=== PATIENT | female | born 1990 | race Two or more races ===

== ENCOUNTER 2023-07-31 11:15 | Outpatient (AMB) | payer OTHER, SELFPAY ==
--- NOTE | 2023-07-31 11:33 | HO.NEPHOV ---
Vital Signs 07/31/23 11:34 Height 4 ft 11 in Weight 150 lb 8 oz BMI 30.4 BP 140/110 H Blood Pressure Location Lt brachial Position Sitting Intake Visit Reasons: Lupus/ Confirmed Director Of Sports Performance Required: No Accompanied by: Self / Same As Patient Allergies shrimp Allergy (Intermediate, Verified 07/31/23 11:38) THROAT SWELLING HPI Comments Details: I had the privilege of seeing Kaylah in follow-up of her proteinuria, hypertension and history of lupus nephritis. 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 She had low chronicity index but high activity index. Ever since she had 1 more child. She has stopped taking Plaquenil, losartan as well as mycophenolate. She has history of noncompliance. She denies any active joint swelling, joint pains, new skin rashes, pedal edema, visual disturbances, chest pain, shortness of breath, blood clots or spontaneous abortions. She has no history of antiphospholipid antibody. She is denying taking excessive nonsteroidal anti-inflammatories. She wants to get back on her medication regimen. [facility] Medical History (Updated 07/31/23 @ 14:25 by John Garduno MD) Hypertension Proteinuria, unspecified SLE glomerulonephritis syndrome, WHO class II Surgical History (Updated 07/31/23 @ 11:41 by Sue Goncalves MA) H/O section Social History (Updated 07/31/23 @ 11:41 by Sue Goncalves MA) Alcohol intake: never Patient Tobacco Use Status: Never used Tobacco Physical Exam Vital Signs: Last Vital Signs BP 140/110 H 07/31/23 11:34 BMI result Body Mass Index 30.4 Const General: comfortable and no acute distress Orientation/consciousness: patient oriented x3 HEENT Head: Yes normocephalic Mouth: Normal oral and palatal mucosa present Eyes EOM: EOMs intact bilaterally Neck Neck: Yes supple Resp Auscultation: clear to auscultation bilaterally Cardio Jugular venous distension: no JVD Rate: regular rate GI Palpation (GI): Soft to palpation Auscultation: normal bowel sounds General: Yes no CVA tenderness Back/Spine/Pelvis Back: no CVA tenderness Skin General skin exam: no rashes or lesions noted Neuro General: patient oriented x3 and moves all extremities Extrem General: Yes no pedal edema Results Reviewed Nephrology Results: No Data to Display Assessment & Plan Assessment & Plan (1) SLE glomerulonephritis syndrome, WHO class II: Code(s): M32.14 - Glomerular disease in systemic lupus erythematosus Category: Medical (2) Proteinuria, unspecified: Code(s): R80.9 - Proteinuria, unspecified Category: Medical Qualifiers: Proteinuria type: other Qualified Code(s): R80.8 - Other proteinuria (3) Hypertension: Code(s): I10 - Essential (primary) hypertension Category: Medical Qualifiers: Hypertension type: secondary to other renal disorders Qualified Code(s): I15.1 - Hypertension secondary to other renal disorders Plan Marc had been noncompliant with her management of lupus nephritis. She had started and stopped immunosuppressions multiple times. She has history of receiving intravenous Cytoxan as well as pulse methylprednisone along with oral steroids. I ordered blood work for today. I restarted her on losartan 50 mg daily. I reinforced the fact that she needs to be compliant with medications. Her need for immunosuppression and other medications will be based on evolving data from the lab work done today. Answered all her questions. Follow-up appointment given. She will be seen in the office in a month time. Orders: Orders Complement C4 Today I10 - Essential (primary) hypertension, M32.14 - Glomerular disease in systemic lupus erythematosus, R80.9 - Proteinuria, unspecified Anti DNA DS Antibody Today I10 - Essential (primary) hypertension, M32.14 - Glomerular disease in systemic lupus erythematosus, R80.9 - Proteinuria, unspecified Blood Urea Nitrogen Today I10 - Essential (primary) hypertension, M32.14 - Glomerular disease in systemic lupus erythematosus, R80.9 - Proteinuria, unspecified Electrolytes Today I10 - Essential (primary) hypertension, M32.14 - Glomerular disease in systemic lupus erythematosus, R80.9 - Proteinuria, unspecified UA and rflx microscopic Today I10 - Essential (primary) hypertension, M32.14 - Glomerular disease in systemic lupus erythematosus, R80.9 - Proteinuria, unspecified Protein Creatinine Ratio, Ur Today I10 - Essential (primary) hypertension, M32.14 - Glomerular disease in systemic lupus erythematosus, R80.9 - Proteinuria, unspecified Complement C3 Today I10 - Essential (primary) hypertension, M32.14 - Glomerular disease in systemic lupus erythematosus, R80.9 - Proteinuria, unspecified Creatinine Today I10 - Essential (primary) hypertension, M32.14 - Glomerular disease in systemic lupus erythematosus, R80.9 - Proteinuria, unspecified Complete Blood Count Auto Diff Today I10 - Essential (primary) hypertension, M32.14 - Glomerular disease in systemic lupus erythematosus, R80.9 - Proteinuria, unspecified Medications: New losartan 50 mg PO DAILY 30 tabs 4RF
[2023-07-31 11:34] VITALS: BP 140/110; BMI 30.4
== END 2023-07-31 12:02 | disposition home or self-care (01) ==
PROVIDERS: Visit Provider Internal Medicine Nephrology
DX: M32.14 Glomerular disease in systemic lupus erythematosus (principal); R80.8 Other proteinuria; I15.1 Hypertension secondary to other renal disorders; Z91.128 Patient's intentional underdosing of medication regimen for other reason
CPT/HCPCS: 99214

== ENCOUNTER 2023-07-31 13:50 | Outpatient (REF) | payer OTHER, SELFPAY ==
[2023-07-31 17:19] LABS: MANUAL DIFF FLAG NO
[2023-07-31 17:20] LABS: Appearance Urine Turbid; Color Urine Yellow; Glucose Urine UA Negative (Negative); Leukocyte Esterase Urine Small (1+) (Negative); Nitrite Urine Positive (Negative); PH 5.5 (5.0-9.0); Specific Gravity - Urine >= 1.030 (1.005-1.025); UMIC TRIGGER UA YES; Urine Blood Small (1+) (Negative); Urine Ketones Negative (Negative); Urine Protein >=1000 (4+) mg/dL (Neg-Trace)
[2023-07-31 17:32] LABS: Anion Gap 10 (12-20); Blood Urea Nitrogen 11 mg/dL (9-16); Carbon Dioxide 25 mmol/L (22-29); Chloride 109 mmol/L (96-108); Estimated Glomerular Filt Rate > 60; Potassium 3.5 mmol/L (3.3-5.1); Sodium 140 mmol/L (135-145)
[2023-07-31 17:34] LABS: Basophils Absolute Auto 0.1 X10*3/uL (0.0-0.2); Basophils Percent Auto 0.6 % (0-2); Eosinophils Absolute Auto 0.2 X10*3/uL (0.0-0.4); Eosinophils Percent Auto 2.8 % (0-4); Hematocrit 39.3 % (37.0-47.0); Hemoglobin 12.6 g/dl (12.0-16.0); Imm Gran Abs Auto 0.18 X10*3/uL (0.00-0.03); Imm Gran Pct Auto 2.3 % (0.0-0.4); Lymphocytes Absolute Auto 0.9 X10*3/uL (1.2-4.9); Lymphocytes Percent Auto 11.7 % (20-40); Mean Corpuscular HGB Conc 32.1 g/dl (31.0-35.0); Mean Corpuscular Hemoglobin 28.2 pg (27.0-33.0); Mean Corpuscular Volume 87.9 fL (80.0-98.0); Mean Platelet Volume 10.9 fL (9.4-12.3); Monocytes Absolute Auto 0.5 X10*3/uL (0.1-1.2); Monocytes Percent Auto 5.7 % (2-11); Neutrophils Absolute Auto 6.1 x10*3/uL (2.0-8.3); Neutrophils Percent Auto 76.9 % (45-73); Platelet Count 327 X10*3/uL (160-400); Red Blood Count 4.47 X10*6/uL (4.20-5.50); Red Cell Distribution Width 13.8 % (11.0-16.0)
[2023-07-31 17:35] LABS: Bacteria Urine 4+ (None Seen); Granular Casts Urine Present; RBC Urine 0-2 /HPF (0-2)
[2023-07-31 18:43] LABS: Creatinine Urine 180.81 mg/dL
[2023-07-31 19:05] LABS: Protein/Creatinine Ratio, Ur 1.91 (<0.2); Total Protein Urine Random 345 mg/dL (<12)
[2023-08-01 15:44] LABS: Complement C3 139 mg/dL (83-193)
[2023-08-01 20:28] LABS: Anti DNA DS Antibody 6 IU/mL
== END 2023-07-31 13:51 | disposition home or self-care (01) ==
LOC: HO.HKASLDS 13:50
PROVIDERS: Visit Provider Internal Medicine Nephrology
DX: M32.14 Glomerular disease in systemic lupus erythematosus (principal); R80.8 Other proteinuria; I15.1 Hypertension secondary to other renal disorders
CPT/HCPCS: 36415; 80051; 81001; 81003; 82565; 82570; 84156; 84520; 85025; 86160; 86225; 99212

== ENCOUNTER 2023-08-28 11:20 | Outpatient (AMB) | payer OTHER, SELFPAY ==
--- NOTE | 2023-08-28 11:30 | HO.NEPHOV ---
Vital Signs 08/28/23 11:35 Height 4 ft 11 in Weight 150 lb 8 oz BMI 30.4 BP 130/80 Blood Pressure Location Lt brachial Position Sitting Pulse 82 Pulse Source Pulse Oximeter Pulse Oximetry (%) 100 Oxygen Delivery Method Room Air Intake Visit Reasons: 1mon follow up/ Confirmed Sales Marketing Coordinator Required: No Accompanied by: Child Allergies shrimp Allergy (Intermediate, Verified 08/28/23 11:38) THROAT SWELLING HPI Comments Details: I had the privilege of seeing Kaylah in follow-up of her proteinuria, hypertension and history of lupus nephritis. 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 She had low chronicity index but high activity index. Ever since she had 1 more child. She has stopped taking Plaquenil, losartan as well as mycophenolate. She has history of noncompliance. She denies any active joint swelling, joint pains, new skin rashes, pedal edema, visual disturbances, chest pain, shortness of breath, blood clots or spontaneous abortions. She has no history of antiphospholipid antibody. She is denying taking excessive nonsteroidal anti-inflammatories. She is back on losartan since last visit. [facility] Medical History (Updated 07/31/23 @ 14:25 by John Garduno MD) Hypertension Proteinuria, unspecified SLE glomerulonephritis syndrome, WHO class II Surgical History (Updated 07/31/23 @ 11:41 by Sue Goncalves MA) H/O section Social History (Updated 07/31/23 @ 11:41 by Sue Goncalves MA) Alcohol intake: never Patient Tobacco Use Status: Never used Tobacco Physical Exam Const General: comfortable and no acute distress Orientation/consciousness: patient oriented x3 HEENT Head: Yes normocephalic Mouth: Normal oral and palatal mucosa present Eyes EOM: EOMs intact bilaterally Neck Neck: Yes supple Resp Auscultation: clear to auscultation bilaterally Cardio Jugular venous distension: no JVD Rate: regular rate GI Palpation (GI): Soft to palpation Auscultation: normal bowel sounds General: Yes no CVA tenderness Back/Spine/Pelvis Back: no CVA tenderness Skin General skin exam: no rashes or lesions noted Neuro General: patient oriented x3 and moves all extremities Extrem General: Yes no pedal edema Results Reviewed Nephrology Results: Hgb 12.6 g/dl (12.0-16.0) 07/31/23 WBC 8.0 X10*3/uL (4.8-10.8) 07/31/23 Plt Count 327 X10*3/uL (160-400) 07/31/23 Sodium 140 mmol/L (135-145) 07/31/23 Potassium 3.5 mmol/L (3.3-5.1) 07/31/23 Chloride 109 mmol/L (96-108) H 07/31/23 Carbon Dioxide 25 mmol/L (22-29) 07/31/23 BUN 11 mg/dL (9-16) 07/31/23 Creatinine 0.64 mg/dL (0.5-1.4) 07/31/23 Urine Protein >=1000 (4+) mg/dL (Neg-Trace) H 07/31/23 Urine Creatinine 180.81 mg/dL 07/31/23 Protein/Creatinin Ratio 1.91 (<0.2) H 07/31/23 Assessment & Plan Assessment & Plan (1) SLE glomerulonephritis syndrome, WHO class II: Code(s): M32.14 - Glomerular disease in systemic lupus erythematosus Category: Medical (2) Proteinuria, unspecified: Code(s): R80.9 - Proteinuria, unspecified Category: Medical Qualifiers: Proteinuria type: other Qualified Code(s): R80.8 - Other proteinuria (3) Hypertension: Code(s): I10 - Essential (primary) hypertension Category: Medical Qualifiers: Hypertension type: secondary to other renal disorders Qualified Code(s): I15.1 - Hypertension secondary to other renal disorders Ivelisse Annewalterezequiel had been noncompliant with her management of lupus nephritis. She had started and stopped immunosuppressions multiple times. She has history of receiving intravenous Cytoxan as well as pulse methylprednisone along with oral steroids. I increased her losartan to 50 mg twice daily. I reinforced the fact that she needs to be compliant with medications. Her need for immunosuppression and other medications will be based on evolving data from the lab work . She does not need cellcept now. Answered all her questions. Follow-up appointment given. Orders: Orders Blood Urea Nitrogen Today I15.1 - Hypertension secondary to other renal disorders, M32.14 - Glomerular disease in systemic lupus erythematosus, R80.8 - Other proteinuria Creatinine Today I15.1 - Hypertension secondary to other renal disorders, M32.14 - Glomerular disease in systemic lupus erythematosus, R80.8 - Other proteinuria Electrolytes Today I15.1 - Hypertension secondary to other renal disorders, M32.14 - Glomerular disease in systemic lupus erythematosus, R80.8 - Other proteinuria Protein Creatinine Ratio, Ur Today I15.1 - Hypertension secondary to other renal disorders, M32.14 - Glomerular disease in systemic lupus erythematosus, R80.8 - Other proteinuria Medications: Changed From losartan 50 mg PO DAILY 30 tabs 4RF To losartan 50 mg PO BID 30 days 60 tabs 4RF Coding Level of Care Code Est Pt Level 4 (81019) Diagnoses SLE glomerulonephritis syndrome, WHO class II M32.14 Other proteinuria R80.8 Proteinuria type: other Hypertension secondary to other renal disorders I15.1 Hypertension type: secondary to other renal disorders
[2023-08-28 11:35] VITALS: BP 130/80; PULSE 82; O2SAT 100; BMI 30.4
== END 2023-08-28 12:15 | disposition home or self-care (01) ==
PROVIDERS: Visit Provider Internal Medicine Nephrology
DX: M32.14 Glomerular disease in systemic lupus erythematosus (principal); R80.8 Other proteinuria; I15.1 Hypertension secondary to other renal disorders
CPT/HCPCS: 99214

== ENCOUNTER → 2023-08-28 11:20 | Outpatient (BNVA) | payer OTHER, SELFPAY | PROVIDERS: Visit Provider Internal Medicine Nephrology | DX: M32.14 Glomerular disease in systemic lupus erythematosus (principal); R80.8 Other proteinuria; I15.1 Hypertension secondary to other renal disorders | CPT/HCPCS: 99212 ==

== ENCOUNTER 2024-01-20 10:02 | Outpatient (AMB) | payer OTHER, SELFPAY ==
--- NOTE | 2024-01-20 10:04 | HO.NEPHOV ---
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 She had low chronicity index but high activity index. Ever since she had 1 more child. She has stopped taking Plaquenil, losartan as well as mycophenolate for a long period of time. She has history of noncompliance. She denies any active joint swelling, joint pains, new skin rashes, pedal edema, visual disturbances, chest pain, shortness of breath, blood clots or spontaneous abortions. She has no history of antiphospholipid antibody. She is denying taking excessive nonsteroidal anti-inflammatories. [facility] Medical History Hypertension Proteinuria, unspecified SLE glomerulonephritis syndrome, WHO class II Surgical History H/O section Social History Alcohol intake: never Patient Tobacco Use Status: Never used Tobacco Review of Systems Const All systems reviewed & are unremarkable except as noted in HPI and below Physical Exam Vital Signs: Last Vital Signs Pulse 92 01/20/24 10:16 BP 170/110 H 01/20/24 10:16 Pulse Ox 100 01/20/24 10:16 Oxygen Delivery Method Room Air 01/20/24 10:16 BMI result Body Mass Index 30.8 Const General: comfortable and no acute distress Orientation/consciousness: patient oriented x3 HEENT Head: Yes normocephalic Mouth: Normal oral and palatal mucosa present Eyes EOM: EOMs intact bilaterally Neck Neck: Yes supple Resp Auscultation: clear to auscultation bilaterally Cardio Jugular venous distension: no JVD Rate: regular rate GI Palpation (GI): Soft to palpation Auscultation: normal bowel sounds General: Yes no CVA tenderness Back/Spine/Pelvis Back: no CVA tenderness Skin General skin exam: no rashes or lesions noted Neuro General: patient oriented x3 and moves all extremities Extrem General: Yes no pedal edema Results Reviewed Nephrology Results: Hgb 12.6 g/dl (12.0-16.0) 07/31/23 WBC 8.0 X10*3/uL (4.8-10.8) 07/31/23 Plt Count 327 X10*3/uL (160-400) 07/31/23 Sodium 140 mmol/L (135-145) 07/31/23 Potassium 3.5 mmol/L (3.3-5.1) 07/31/23 Chloride 109 mmol/L (96-108) H 07/31/23 Carbon Dioxide 25 mmol/L (22-29) 07/31/23 BUN 11 mg/dL (9-16) 07/31/23 Creatinine 0.64 mg/dL (0.5-1.4) 07/31/23 Urine Protein >=1000 (4+) mg/dL (Neg-Trace) H 07/31/23 Urine Creatinine 180.81 mg/dL 07/31/23 Protein/Creatinin Ratio 1.91 (<0.2) H 07/31/23 Assessment & Plan Assessment & Plan (1) SLE glomerulonephritis syndrome, WHO class II: Code(s): M32.14 - Glomerular disease in systemic lupus erythematosus Category: Medical (2) Proteinuria, unspecified: Code(s): R80.9 - Proteinuria, unspecified Category: Medical Qualifiers: Proteinuria type: other Qualified Code(s): R80.8 - Other proteinuria (3) Hypertension: Code(s): I10 - Essential (primary) hypertension Category: Medical Qualifiers: Hypertension type: secondary to other renal disorders Qualified Code(s): I15.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 She had started and stopped immunosuppressions multiple times. She has history of receiving intravenous Cytoxan as well as pulse methylprednisone along with oral steroids. I started her back on losartan 50 mg twice daily. I reinforced the fact that she needs to be compliant with medications. Her need for immunosuppression and other medications will be based on evolving data from the lab work . She does not need cellcept now. Answered all her questions. Time spent 41 minutes for data retrieval, encounter and documentation. Lab ordered for today. Follow-up appointment given. Orders: Orders Complement C4 Today I15.1 - Hypertension secondary to other renal disorders, M32.14 - Glomerular disease in systemic lupus erythematosus, R80.8 - Other proteinuria UA and rflx microscopic Today I15.1 - Hypertension secondary to other renal disorders, M32.14 - Glomerular disease in systemic lupus erythematosus, R80.8 - Other proteinuria Protein Creatinine Ratio, Ur Today I15.1 - Hypertension secondary to other renal disorders, M32.14 - Glomerular disease in systemic lupus erythematosus, R80.8 - Other proteinuria Blood Urea Nitrogen Today I15.1 - Hypertension secondary to other renal disorders, M32.14 - Glomerular disease in systemic lupus erythematosus, R80.8 - Other proteinuria Complement C3 Today I15.1 - Hypertension secondary to other renal disorders, M32.14 - Glomerular disease in systemic lupus erythematosus, R80.8 - Other proteinuria Creatinine Today I15.1 - Hypertension secondary to other renal disorders, M32.14 - Glomerular disease in systemic lupus erythematosus, R80.8 - Other proteinuria Electrolytes Today I15.1 - Hypertension secondary to other renal disorders, M32.14 - Glomerular disease in systemic lupus erythematosus, R80.8 - Other proteinuria Coding Level of Care Code Est Pt Level 5 (18598) Diagnoses SLE glomerulonephritis syndrome, WHO class II M32.14 Other proteinuria R80.8 Proteinuria type: other Hypertension secondary to other renal disorders I15.1 Hypertension type: secondary to other renal disorders
[2024-01-20 10:16] VITALS: BP 170/110; PULSE 92; O2SAT 100; BMI 30.8
== END 2024-01-20 10:50 | disposition home or self-care (01) ==
PROVIDERS: Visit Provider Internal Medicine Nephrology
DX: M32.14 Glomerular disease in systemic lupus erythematosus (principal); R80.8 Other proteinuria; I15.1 Hypertension secondary to other renal disorders
CPT/HCPCS: 99215

== ENCOUNTER → 2024-01-20 10:02 | Outpatient (BNVA) | payer OTHER, SELFPAY | PROVIDERS: Visit Provider Internal Medicine Nephrology | DX: M32.14 Glomerular disease in systemic lupus erythematosus (principal); R80.8 Other proteinuria; I15.1 Hypertension secondary to other renal disorders | CPT/HCPCS: 99212 ==

== ENCOUNTER 2024-02-26 10:49 | Outpatient (AMB) | payer OTHER, SELFPAY ==
--- NOTE | 2024-02-26 10:54 | HO.NEPHOV_ITS ---
Vital Signs 02/26/24 10:55 Height 4 ft 11 in Weight 152 lb 8 oz BMI 30.8 BP 122/90 H Blood Pressure Location Lt brachial Position Sitting Intake Visit Reasons: Per MD Survey Workers Supervisor Required: No Accompanied by: Self / Same As Patient Allergies shrimp Allergy (Intermediate, Verified 02/26/24 10:55) THROAT SWELLING HPI Comments Details: Kaylah was seen in follow-up of her proteinuria, hypertension and history of lupus nephritis. 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 She had low chronicity index but high activity index. Ever since she had 1 more child. She has stopped taking Plaquenil, losartan as well as mycophenolate for a long period of time. She has history of noncompliance. She denies any active joint swelling, joint pains, new skin rashes, pedal edema, visual disturbances, chest pain, shortness of breath, blood clots or spontaneous abortions. She has no history of antiphospholipid antibody. She is denying taking excessive nonsteroidal anti-inflammatories.She recently had one episode of dizziness. [facility] Medical History Hypertension Proteinuria, unspecified SLE glomerulonephritis syndrome, WHO class II Surgical History H/O section Social History Alcohol intake: never Patient Tobacco Use Status: Never used Tobacco Review of Systems Const All systems reviewed & are unremarkable except as noted in HPI and below Physical Exam Vital Signs: Last Vital Signs BP 122/90 H 02/26/24 10:55 BMI result Body Mass Index 30.8 Const General: comfortable and no acute distress Orientation/consciousness: patient oriented x3 HEENT Head: Yes normocephalic Mouth: Normal oral and palatal mucosa present Eyes EOM: EOMs intact bilaterally Neck Neck: Yes supple Resp Auscultation: clear to auscultation bilaterally Cardio Jugular venous distension: no JVD Rate: regular rate GI Palpation (GI): Soft to palpation Auscultation: normal bowel sounds General: Yes no CVA tenderness Back/Spine/Pelvis Back: no CVA tenderness Skin General skin exam: no rashes or lesions noted Neuro General: patient oriented x3 and moves all extremities Extrem General: Yes no pedal edema Results Reviewed Nephrology Results: Hgb 12.6 g/dl (12.0-16.0) 07/31/23 WBC 8.0 X10*3/uL (4.8-10.8) 07/31/23 Plt Count 327 X10*3/uL (160-400) 07/31/23 Sodium 140 mmol/L (135-145) 07/31/23 Potassium 3.5 mmol/L (3.3-5.1) 07/31/23 Chloride 109 mmol/L (96-108) H 07/31/23 Carbon Dioxide 25 mmol/L (22-29) 07/31/23 BUN 11 mg/dL (9-16) 07/31/23 Creatinine 0.64 mg/dL (0.5-1.4) 07/31/23 Urine Protein >=1000 (4+) mg/dL (Neg-Trace) H 4 Urine Creatinine 180.81 mg/dL 07/31/23 Protein/Creatinin Ratio 1.91 (<0.2) H 07/31/23 Assessment & Plan Assessment & Plan (1) SLE glomerulonephritis syndrome, WHO class II: Code(s): M32.14 - Glomerular disease in systemic lupus erythematosus Category: Medical (2) Hypertension: Code(s): I10 - Essential (primary) hypertension Category: Medical Qualifiers: Hypertension type: secondary to other renal disorders Qualified Code(s): I15.1 - Hypertension secondary to other renal disorders (3) Proteinuria, unspecified: Code(s): R80.9 - Proteinuria, unspecified Category: Medical Qualifiers: Proteinuria type: other Qualified Code(s): R80.8 - Other proteinuria Plan Dianchesca had been noncompliant with her management of lupus nephritis. She had started and stopped immunosuppressions multiple times. She has history of receiving intravenous Cytoxan as well as pulse methylprednisone along with oral steroids. She is on losartan 25 mg daily. I reinforced the fact that she needs to be compliant with medications. Her need for immunosuppression and other medications will be based on evolving data from the lab work . She does not need cellcept now. Answered all her questions. Lab ordered . Follow-up appointment given. Orders: Orders Creatinine 2 Months I15.1 - Hypertension secondary to other renal disorders, M32.14 - Glomerular disease in systemic lupus erythematosus, R80.8 - Other proteinuria UA and rflx microscopic 2 Months I15.1 - Hypertension secondary to other renal disorders, M32.14 - Glomerular disease in systemic lupus erythematosus, R80.8 - Other proteinuria Complement C3 2 Months I15.1 - Hypertension secondary to other renal disorders, M32.14 - Glomerular disease in systemic lupus erythematosus, R80.8 - Other proteinuria Protein Creatinine Ratio, Ur 2 Months I15.1 - Hypertension secondary to other renal disorders, M32.14 - Glomerular disease in systemic lupus erythematosus, R80.8 - Other proteinuria Blood Urea Nitrogen 2 Months I15.1 - Hypertension secondary to other renal disorders, M32.14 - Glomerular disease in systemic lupus erythematosus, R80.8 - Other proteinuria Electrolytes 2 Months I15.1 - Hypertension secondary to other renal disorders, M32.14 - Glomerular disease in systemic lupus erythematosus, R80.8 - Other proteinuria Complement C4 2 Months I15.1 - Hypertension secondary to other renal disorders, M32.14 - Glomerular disease in systemic lupus erythematosus, R80.8 - Other proteinuria Coding Level of Care Code Est Pt Level 4 (07396) Diagnoses SLE glomerulonephritis syndrome, WHO class II M32.14 Hypertension secondary to other renal disorders I15.1 Hypertension type: secondary to other renal disorders Other proteinuria R80.8 Proteinuria type: other
[2024-02-26 10:55] VITALS: BP 122/90; BMI 30.8
== END 2024-02-26 11:21 | disposition home or self-care (01) ==
PROVIDERS: Visit Provider Internal Medicine Nephrology
DX: M32.14 Glomerular disease in systemic lupus erythematosus (principal); I15.1 Hypertension secondary to other renal disorders; R80.8 Other proteinuria
CPT/HCPCS: 99214

== ENCOUNTER → 2024-02-26 10:49 | Outpatient (BNVA) | payer OTHER, SELFPAY | PROVIDERS: Visit Provider Internal Medicine Nephrology | DX: M32.14 Glomerular disease in systemic lupus erythematosus (principal); I15.0 Renovascular hypertension; R80.8 Other proteinuria; Z91.148 Patient's other noncompliance with medication regimen for other reason | CPT/HCPCS: 99212 ==

== ENCOUNTER 2024-04-20 10:04 | Outpatient (AMB) | payer OTHER, SELFPAY ==
--- NOTE | 2024-04-20 10:24 | HO.NEPHOV ---
Vital Signs 04/20/24 10:25 Height 4 ft 11 in Weight 151 lb 2 oz BMI 30.5 BP 122/80 Blood Pressure Location Lt brachial Position Sitting Intake Visit Reasons: 3mo -Follow up/ LVM Biological Sciences Professor Required: No Accompanied by: Self / Same As Patient Allergies shrimp Allergy (Intermediate, Verified 04/20/24 10:25) THROAT SWELLING HPI Comments Details: Kaylah was seen in follow-up of her proteinuria, hypertension and history of lupus nephritis. 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 She had low chronicity index but high activity index. Ever since she had 1 more child. She has stopped taking Plaquenil, losartan as well as mycophenolate for a long period of time. She has history of noncompliance. She denies any active joint swelling, joint pains, new skin rashes, pedal edema, visual disturbances, chest pain, shortness of breath, blood clots or spontaneous abortions. She has no history of antiphospholipid antibody. She is denying taking excessive nonsteroidal anti-inflammatories. [facility] Medical History Hypertension Proteinuria, unspecified SLE glomerulonephritis syndrome, WHO class II Surgical History H/O section Social History Alcohol intake: never Patient Tobacco Use Status: Never used Tobacco Review of Systems Const All systems reviewed & are unremarkable except as noted in HPI and below Physical Exam Const General: comfortable and no acute distress Orientation/consciousness: patient oriented x3 HEENT Head: Yes normocephalic Mouth: Normal oral and palatal mucosa present Eyes EOM: EOMs intact bilaterally Neck Neck: Yes supple Resp Auscultation: clear to auscultation bilaterally Cardio Jugular venous distension: no JVD Rate: regular rate GI Palpation (GI): Soft to palpation Auscultation: normal bowel sounds General: Yes no CVA tenderness Back/Spine/Pelvis Back: no CVA tenderness Skin General skin exam: no rashes or lesions noted Neuro General: patient oriented x3 and moves all extremities Extrem General: Yes no pedal edema Assessment & Plan Assessment & Plan (1) Proteinuria, unspecified: Code(s): R80.9 - Proteinuria, unspecified Category: Medical Qualifiers: Proteinuria type: other Qualified Code(s): R80.8 - Other proteinuria (2) Hypertension: Code(s): I10 - Essential (primary) hypertension Category: Medical Qualifiers: Hypertension type: secondary to other renal disorders Qualified Code(s): I15.1 - Hypertension secondary to other renal disorders (3) SLE glomerulonephritis syndrome, WHO class II: Code(s): M32.14 - Glomerular disease in systemic lupus erythematosus Category: Medical Plan Marc had been noncompliant with her management of lupus nephritis. She had started and stopped immunosuppressions multiple times. She has history of receiving intravenous Cytoxan as well as pulse methylprednisone along with oral steroids. She is on losartan 25 mg daily. I reinforced the fact that she needs to be compliant with medications. Her need for immunosuppression and other medications will be based on evolving data from the lab work . She does not need cellcept now. Answered all her questions. Lab ordered . Follow-up appointment given. Orders: Orders Creatinine Today I15.1 - Hypertension secondary to other renal disorders, M32.14 - Glomerular disease in systemic lupus erythematosus, R80.8 - Other proteinuria Blood Urea Nitrogen Today I15.1 - Hypertension secondary to other renal disorders, M32.14 - Glomerular disease in systemic lupus erythematosus, R80.8 - Other proteinuria Electrolytes Today I15.1 - Hypertension secondary to other renal disorders, M32.14 - Glomerular disease in systemic lupus erythematosus, R80.8 - Other proteinuria Protein Creatinine Ratio, Ur 3 Months I15.1 - Hypertension secondary to other renal disorders, M32.14 - Glomerular disease in systemic lupus erythematosus, R80.8 - Other proteinuria Blood Urea Nitrogen 3 Months I15.1 - Hypertension secondary to other renal disorders, M32.14 - Glomerular disease in systemic lupus erythematosus, R80.8 - Other proteinuria Protein Creatinine Ratio, Ur Today I15.1 - Hypertension secondary to other renal disorders, M32.14 - Glomerular disease in systemic lupus erythematosus, R80.8 - Other proteinuria Electrolytes 3 Months I15.1 - Hypertension secondary to other renal disorders, M32.14 - Glomerular disease in systemic lupus erythematosus, R80.8 - Other proteinuria Creatinine 3 Months I15.1 - Hypertension secondary to other renal disorders, M32.14 - Glomerular disease in systemic lupus erythematosus, R80.8 - Other proteinuria Coding Level of Care Code Est Pt Level 4 (55611) Diagnoses Other proteinuria R80.8 Proteinuria type: other Hypertension secondary to other renal disorders I15.1 Hypertension type: secondary to other renal disorders SLE glomerulonephritis syndrome, WHO class II M32.14
[2024-04-20 10:25] VITALS: BP 122/80; BMI 30.5
== END 2024-04-20 10:43 | disposition home or self-care (01) ==
PROVIDERS: Visit Provider Internal Medicine Nephrology
DX: R80.8 Other proteinuria (principal); I15.1 Hypertension secondary to other renal disorders; M32.14 Glomerular disease in systemic lupus erythematosus
CPT/HCPCS: 99214

== ENCOUNTER 2024-04-20 10:04 | Outpatient (REF) | payer OTHER, SELFPAY ==
[2024-04-20 18:24] LABS: Anion Gap 11 (12-20); Blood Urea Nitrogen 11 mg/dL (9-16); Carbon Dioxide 26 mmol/L (22-29); Chloride 107 mmol/L (96-108); Estimated Glomerular Filt Rate > 60; Potassium 3.8 mmol/L (3.3-5.1); Sodium 140 mmol/L (135-145)
[2024-04-20 18:42] LABS: Creatinine Urine 121.83 mg/dL; Protein/Creatinine Ratio, Ur 1.16 (<0.2); Total Protein Urine Random 141 mg/dL (<12)
== END 2024-04-20 10:05 | disposition home or self-care (01) ==
LOC: HO.HKASLDS 10:04
PROVIDERS: Visit Provider Internal Medicine Nephrology
DX: M32.14 Glomerular disease in systemic lupus erythematosus (principal); R80.8 Other proteinuria; I15.1 Hypertension secondary to other renal disorders
CPT/HCPCS: 36415; 80051; 82565; 82570; 84156; 84520; 99212

== ENCOUNTER 2024-07-20 09:41 | Outpatient (REF) | payer OTHER, SELFPAY ==
--- OUTSIDE RECORDS SUMMARY | 2024-07-20 11:06 | XMS_ITS | Encounter Summary ---
Author Organization [facility] Address [address] [place] [address] Care Team Providers Care Collar Cutter Name Role Phone Marisol Gilman MD Primary Care Provider [phone] Marisol Gilman MD Unavailable [phone] Encounter Details Date Type Department Care Team Description 03/03/2019 Industrial Designer Report Medical Records [address] [place] [address] Oli Funk Social History Tobacco Use Types Packs/Day Years Used Date Smoking Tobacco: Never Smokeless Tobacco: Never Sex Assigned at Date Recorded Not on file documented as of this encounter Plan of Treatment Not on file documented as of this encounter Visit Diagnoses Not on filedocumented in this encounter Care Teams Collar Cutter Relationship Specialty Start Date End Date Marisol Gilman MD PCP - General Internal Medicine 02/23/18 Marisol Gilman MD Internal Medicine 02/23/18 documented as of this encounter
--- OUTSIDE RECORDS SUMMARY | 2024-07-20 11:06 | XMS_ITS | Encounter Summary ---
Author Organization [email or web address] Address [address] [place] [address] Care Team Providers Care Coal Conveyor Operator Name Role Phone Marisol Gilman MD Primary Care Provider [phone] Marisol Gilman MD Unavailable [phone] Encounter Details Date Type Department Care Team Description 03/22/2019 Old Medical Records Medical Records [address] [place] [id number] Abstract, Provider Social History Tobacco Use Types Packs/Day Years Used Date Smoking Tobacco: Never Smokeless Tobacco: Never Sex Assigned at Date Recorded Not on file documented as of this encounter Plan of Treatment Not on file documented as of this encounter Visit Diagnoses Not on filedocumented in this encounter Care Teams Coal Conveyor Operator Relationship Specialty Start Date End Date Marisol Gilman MD PCP - General Internal Medicine 02/23/18 Marisol Gilman MD Internal Medicine 02/23/18 documented as of this encounter
--- OUTSIDE RECORDS SUMMARY | 2024-07-20 11:06 | XMS_ITS | Encounter Summary ---
Author Organization [facility] Address [address] [place] [address] Care Team Providers Care Shingle Cutter Name Role Phone Marisol Gilman MD Primary Care Provider [phone] Marisol Gilman MD Unavailable [phone] Encounter Details Date Type Department Care Team Description 12/23/2022 Telephone Gastroenterology - [address] [place] [phone] Mignon Klein, Shawn Social History Tobacco Use Types Packs/Day Years Used Date Smoking Tobacco: Former Smokeless Tobacco: Never Comments:on and off for a fe w years Alcohol Use Standard Drinks/Week Comments No 0 (1 standard drink = 0.6 oz pur e alcohol) Sex Assigned at Date Recorded Not on file COVID-19 Exposure Response Date Recorded In the last 10 days, have yo u been in contact with someone who was confirmed or suspected to have Coronavirus/COVID-19? Unable to assess 12/23/2022 8:05 AM EDT documented as of this encounter Plan of Treatment Not on file documented as of this encounter Visit Diagnoses Not on filedocumented in this encounter Care Teams Shingle Cutter Relationship Specialty Start Date End Date Marisol Gilman MD PCP - General Internal Medicine 02/23/18 Marisol Gilman MD Internal Medicine 02/23/18 documented as of this encounter
--- OUTSIDE RECORDS SUMMARY | 2024-07-20 11:06 | XMS_ITS | Encounter Summary ---
Author Organization [facility] Address [address] [place] [address] Care Team Providers Care Material Manager Name Role Phone Marisol Gilman MD Primary Care Provider [phone] Marisol Gilman MD Unavailable [phone] Encounter Details Date Type Department Care Team Description 12/25/2018 Physical Sciences Professor Report Medical Records [address] [place] [address] Oli Funk Social History Tobacco Use Types Packs/Day Years Used Date Smoking Tobacco: Never Smokeless Tobacco: Never Sex Assigned at Date Recorded Not on file documented as of this encounter Plan of Treatment Not on file documented as of this encounter Visit Diagnoses Not on filedocumented in this encounter Care Teams Material Manager Relationship Specialty Start Date End Date Marisol Gilman MD PCP - General Internal Medicine 02/23/18 Marisol Gilman MD Internal Medicine 02/23/18 documented as of this encounter
--- OUTSIDE RECORDS SUMMARY | 2024-07-20 11:06 | XMS_ITS | Encounter Summary ---
Author Organization [facility] Address [address] [place] [address] Care Team Providers Care Malted Milk Mixer Name Role Phone Marisol Gilman MD Primary Care Provider [phone] Marisol Gilman MD Unavailable [phone] Encounter Details Date Type Department Care Team Description 07/07/2018 Stereo Plotter Operator Report Medical Records [address] [place] [id number] John Garduno MD Social History Tobacco Use Types Packs/Day Years Used Date Smoking Tobacco: Never Smokeless Tobacco: Never Sex Assigned at Date Recorded Not on file documented as of this encounter Plan of Treatment Not on file documented as of this encounter Visit Diagnoses Not on filedocumented in this encounter Care Teams Malted Milk Mixer Relationship Specialty Start Date End Date Marisol Gilman MD PCP - General Internal Medicine 02/23/18 Marisol Gilman MD Internal Medicine 02/23/18 documented as of this encounter
--- OUTSIDE RECORDS SUMMARY | 2024-07-20 11:06 | XMS_ITS | Encounter Summary ---
Author Organization [facility] Address [address] [place] [address] Care Team Providers Care Fruit And Vegetable Parer Name Role Phone Marisol Gilman MD Primary Care Provider [phone] Marisol Gilman MD Unavailable [phone] Reason for Visit * Reason Onset Date Comments APPOINTMENT 01/06/2024 Encounter Details Date Type Department Care Team Description 01/06/2024 Telephone Internal Medicine - [address], [address] [place] [address] Marisol Gilman MD [address] [place] [phone] APPOINTMENT Social History Tobacco Use Types Packs/Day Years Used Date Smoking Tobacco: Former Smokeless Tobacco: Never Comments:on and off for a fe w years Alcohol Use Standard Drinks/Week Comments No 0 (1 standard drink = 0.6 oz pur e alcohol) Sex Assigned at Date Recorded Not on file documented as of this encounter Miscellaneous Notes * Telephone Encounter - Kimi Rios - 01/06/2024 12:23 PM EDT Patient called AFTER Twelve noon Requesting to be seen today Cold and ear ache since this am - did not phone earlier in am Informed her NA appt this afternoon or tomorrow I then transferred the call to our urgent care fyi documented in this encounter Plan of Treatment Not on file documented as of this encounter Visit Diagnoses Not on filedocumented in this encounter Care Teams Fruit And Vegetable Parer Relationship Specialty Start Date End Date Marisol Gilman MD PCP - General Internal Medicine 02/23/18 Marisol Gilman MD Internal Medicine 02/23/18 documented as of this encounter
--- OUTSIDE RECORDS SUMMARY | 2024-07-20 11:06 | XMS_ITS | Encounter Summary ---
Author Organization [facility] Address [address] [place] [address] Care Team Providers Care Certified Anesthesiologist Assistant Name Role Phone Marisol Gilman MD Primary Care Provider [phone] Marisol Gilman MD Unavailable [phone] Encounter Details Date Type Department Care Team Description 12/22/2018 Nnps Report Medical Records [address] [place] [id number] [place] [address], [facility] Tobacco Use Types Packs/Day Years Used Date Smoking Tobacco: Never Smokeless Tobacco: Never Sex Assigned at Date Recorded Not on file documented as of this encounter Plan of Treatment Not on file documented as of this encounter Visit Diagnoses Not on filedocumented in this encounter Care Teams Certified Anesthesiologist Assistant Relationship Specialty Start Date End Date Marisol Gilman MD PCP - General Internal Medicine 02/23/18 Marisol Gilman MD Internal Medicine 02/23/18 documented as of this encounter
--- OUTSIDE RECORDS SUMMARY | 2024-07-20 11:06 | XMS_ITS | Clinical Summary ---
Author Organization [facility] Address [address] [facility] [address] [place] [address] Phone Care Team Providers Care Fishing Lure Assembler Name Role Phone Marisol Gilman MD Primary Care Provider [phone] Allergies Active Allergy Reactions Criticality Noted Date Comments Shrimp Flavor Agent (Non-Screening) 10/11/2020 Medications hydroxychloroqu ine (PLAQUENIL) 200 MG tablet Take 200 mg by mouth in the morning and 200 mg in the evening. Active amitriptyline (ELAVIL) 10 MG tablet 12/23/2022 Active dicyclomine (BENTYL) 10 MG capsule 12/23/2022 Active fluconazole (DIFLUCAN) 150 MG tablet TAKE 1 TABLET BY MOUTH 1 TIME 12/18/2022 Active hydrOXYzine (ATARAX) 10 MG tablet TAKE 1 TABLET BY MOUTH DAILY NEEDED FOR ITCHING 12/05/2022 Active DULCOLAX 5 MG EC tablet TAKE 2 TABLETS BY MOUTH AT 6PM 11/21/2022 Active loratadine (CLARITIN) 10 MG tablet Take 10 mg by mouth 1 (one) time each day 12/02/2022 Active losartan (COZAAR) 25 MG tablet Take 1 tablet (25 mg total) by mouth in the morning and 1 tablet (25 mg total) in the evening. 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 Dyspareunia 05/22/2021 05/22/2021 Past history of section 05/22/2021 05/22/2021 High antibody titer 05/22/2021 05/22/19 Past history of pre-eclampsia 05/22/2021 05/22/2021 Obese class I 05/22/2021 05/22/2021 Raynaud's disease 05/22/2021 05/22/2021 Serology detected 05/22/2021 05/22/2021 Overview (05/22/2021): AND anti-Fya antibody positive Edema 10/11/2020 10/11/2020 Constipation 03/17/2017 10/11/2020 Anxiety 03/06/2016 10/11/2020 Vitamin D deficiency 06/16/2014 021 Carpal tunnel syndrome 11/26/201210/11 Immunizations Name Administration Dates Next Due Pneumococcal Polysaccharide 02/23/2017 Tdap 05/15/2021,11/09/2018 Family History Relation Status Comments Father Alive Mother Alive Social History Tobacco Use Types Packs/Day Years Used Date Smoking Tobacco: Former Smokeless Tobacco: Never Tobacco Cessation:Counseling Given: Not Answered Comments Unknown Sex and Gender Information Value Date Recorded Sex Assigned at Not on file Legal Sex Female 5:03 PM EST Gender Identity Not on file Sexual Orientation Not on file Last Filed Vital Signs Vital Sign Reading Time Taken Comments Blood Pressure 124/78 01/02/2023 4:21 PM EDT Pulse 73 01/02/2023 4:21 PM EDT Temperature - - Respiratory Rate - - Oxygen Saturation 96% 01/02/2023 4:21 PM EDT Inhaled Oxygen Concentration - - Weight 68.9 kg (151 lb 12.8 oz) 01/02/2023 4:21 PM EDT Height 152.4 cm (5') 04/18/2020 12:00 PM EST Body Mass Index 29.65 04/18/2020 12:00 PM EST Plan of Treatment Health Maintenance Due Date Last Done Comments Hepatitis B Vaccine (1 of 3 - 19+ 3-dose series) 01/14 Pneumococcal Vaccine: Pediat rics (0 to 5 Years) and At-Risk Patients (6 to 64 Years) (2 of 2 - PCV) 02/23/2018 02/23/2017 Influenza Vaccine (Season Ended) 2024 Insurance (A2793) ([id number]) Care Teams Fishing Lure Assembler Relationship Specialty Start Date End Date Marisol Gilman MD [address] [place] [phone] PCP - General 04/24/20
--- OUTSIDE RECORDS SUMMARY | 2024-07-20 11:06 | XMS_ITS | Encounter Summary ---
Author Organization [facility] Address [address] [place] [address] Care Team Providers Care Frame Table Operator Helper Name Role Phone Marisol Gilman MD Primary Care Provider [phone] Marisol Gilman MD Unavailable [phone] Encounter Details Date Type Department Care Team Description 05/18/2019 Racing Car Driver Report Medical Records [address] [place] [id number] John Garduno MD Social History Tobacco Use Types Packs/Day Years Used Date Smoking Tobacco: Never Smokeless Tobacco: Never Sex Assigned at Date Recorded Not on file documented as of this encounter Plan of Treatment Not on file documented as of this encounter Visit Diagnoses Not on filedocumented in this encounter Care Teams Frame Table Operator Helper Relationship Specialty Start Date End Date Marisol Gilman MD PCP - General Internal Medicine 02/23/18 Marisol Gilman MD Internal Medicine 02/23/18 documented as of this encounter
--- OUTSIDE RECORDS SUMMARY | 2024-07-20 11:06 | XMS_ITS | Encounter Summary ---
Author Organization [facility] Address [address] [place] [address] Care Team Providers Care Utilization Management Manager Name Role Phone Marisol Gilman MD Primary Care Provider [phone] Marisol Gilman MD Unavailable [phone] Encounter Details Date Type Department Care Team Description 01/02/2023 Therapy Technician Report Medical Records [address] [place] [id number] John Garduno MD Social History Tobacco Use [...] on filedocumented in this encounter Care Teams Utilization Management Manager Relationship Specialty Start Date End Date Marisol Gilman MD PCP - General Internal Medicine 02/23/18 Marisol Gilman MD Internal Medicine 02/23/18 documented as of this encounter
--- OUTSIDE RECORDS SUMMARY | 2024-07-20 11:06 | XMS_ITS | Encounter Summary ---
Author Organization [facility] Address [address] [place] [address] Care Team Providers Care Marketing Lead Name Role Phone Marisol Gilman MD Primary Care Provider [phone] Marisol Gilman MD Unavailable [phone] Encounter Details Date Type Department Care Team Description 07/31/2023 Louver Door Assembler Report Medical Records [address] [place] [id number] John Garduno MD Social History Tobacco Use [...] on filedocumented in this encounter Care Teams Marketing Lead Relationship Specialty Start Date End Date Marisol Gilman MD PCP - General Internal Medicine 02/23/18 Marisol Gilman MD Internal Medicine 02/23/18 documented as of this encounter
--- OUTSIDE RECORDS SUMMARY | 2024-07-20 11:06 | XMS_ITS | Encounter Summary ---
Author Organization [facility] Address [address] [place] [address] Care Team Providers Care Window Framer Name Role Phone Marisol Gilman MD Primary Care Provider [phone] Marisol Gilman MD Unavailable [phone] Encounter Details Date Type Department Care Team Description 11/06/2020 Margin Clerk Report Medical Records [address] [place] [id number] Oli Funk Social History Tobacco Use Types [...] on filedocumented in this encounter Care Teams Window Framer Relationship Specialty Start Date End Date Marisol Gilman MD PCP - General Internal Medicine 02/23/18 Marisol Gilman MD Internal Medicine 02/23/18 documented as of this encounter
--- OUTSIDE RECORDS SUMMARY | 2024-07-20 11:06 | XMS_ITS | Encounter Summary ---
Author Organization [facility] Address [address] [place] [address] Care Team Providers Care Manager Safe Name Role Phone Marisol Gilman MD Primary Care Provider [phone]- [phone] Marisol Gilman MD Unavailable [phone] Encounter Details Date Type Department Care Team Description 03/03/2020 Telephone Adult [address] [address] Marisol Gilman MD [address] [place] [phone] Social History Tobacco Use Types Packs/Day Years Used Date Smoking Tobacco: Former Smokeless Tobacco: Never Comments:on and off for a fe w years Alcohol Use Standard Drinks/Week Comments No 0 (1 standard drink = 0.6 oz pur e alcohol) Sex Assigned at Date Recorded Not on file COVID-19 Exposure Response Date Recorded In the last month, have you been in contact with someone who was confirmed or suspected to have Coronavirus / COVID-19? Unable to assess 03/02/2020 4:10 PM EST documented as of this encounter Plan of Treatment Not on file documented as of this encounter Visit Diagnoses Not on filedocumented in this encounter Care Teams Manager Safe Relationship Specialty Start Date End Date Marisol Gilman MD PCP - General Internal Medicine 02/23/18 Marisol Gilman MD Internal Medicine 02/23/18 documented as of this encounter
--- OUTSIDE RECORDS SUMMARY | 2024-07-20 11:06 | XMS_ITS | Encounter Summary ---
Author Organization [facility] Address [address] [place] [address] Care Team Providers Care Antitank Assault Gunner Name Role Phone Marisol Gilman MD Primary Care Provider [phone] Marisol Gilman MD Unavailable [phone] Encounter Details Date Type Department Care Team Description 03/03/2018 Application Integration Engineer Report Medical Records [address] [place] [id number] Oli Funk Social History Tobacco Use Types Packs/Day Years Used Date Smoking Tobacco: Never Assessed Sex Assigned at Date Recorded Not on file documented as of this encounter Plan of Treatment Not on file documented as of this encounter Visit Diagnoses Not on filedocumented in this encounter Care Teams Antitank Assault Gunner Relationship Specialty Start Date End Date Marisol Gilman MD PCP - General Internal Medicine 02/23/18 Marisol Gilman MD Internal Medicine 02/23/18 documented as of this encounter
--- OUTSIDE RECORDS SUMMARY | 2024-07-20 11:06 | XMS_ITS | Encounter Summary ---
Author Organization [facility] Address [address] [place] [address] Care Team Providers Care Community Outreach Advocate Name Role Phone Marisol Gilman MD Primary Care Provider [phone] Marisol Gilman MD Unavailable [phone] Encounter Details Date Type Department Care Team Description 09/13/2020 Orders Only Internal Medicine [address], [address] [place] [address] Kashif Gil PA-C Acute otitis media, unspecified otitis media type; Dizziness, nonspecific Social History Tobacco Use Types Packs/Day Years [...] or suspected to have Coronavirus / COVID-19? No / Unsure 08/16/2020 1:49 PM EDT documented as of this encounter Plan of Treatment Not on file documented as of this encounter Procedures Procedure Name Priority Date/Time Associated Diagnosis Comments CHG COMPREHENSIVE METABOLIC PANEL Routine 08/16/2020 Acute otitis media, unspecified otitis media type Dizziness, nonspecific documented in this encounter Results * COMPREHENSIVE METABOLIC PANEL (08/16/2020) 08/16/2020 Kashif Gil PA-C [facility] documented in this encounter Visit Diagnoses Diagnosis Acute otitis media, unspecified otitis media type Dizziness, nonspecific Dizziness and giddiness documented in this encounter Care Teams Community Outreach Advocate Relationship Specialty Start Date End Date Marisol Gilman MD PCP - General Internal Medicine 02/23/18 Marisol Gilman MD Internal Medicine 02/23/18 documented as of this encounter
--- OUTSIDE RECORDS SUMMARY | 2024-07-20 11:06 | XMS_ITS | Encounter Summary ---
Author Organization [facility] Address [address] [place] [address] Care Team Providers Care Communications Program Manager Name Role Phone Marisol Gilman MD Primary Care Provider [phone] Marisol Gilman MD Unavailable [phone] Encounter Details Date Type Department Care Team Description 07/11/2020 Service Delivery Management Consultant Report Medical Records [address] [place] [id number] Carlos Cochran MD Social History Tobacco Use Types Packs/Day [...] on filedocumented in this encounter Care Teams Communications Program Manager Relationship Specialty Start Date End Date Marisol Gilman MD PCP - General Internal Medicine 02/23/18 Marisol Gilman MD Internal Medicine 02/23/18 documented as of this encounter
--- OUTSIDE RECORDS SUMMARY | 2024-07-20 11:06 | XMS_ITS | Clinical Summary ---
Author Organization [address] [place] [address] Address [address] [place] [address] Phone Care Team Providers Care Public Health Name Role Phone Marisol Gilman MD Primary Care Provider Allergies No known active allergies Medications fexofenadine (JOSE) 180 mg tablet Take 1 Tablet by mouth daily for 15 days. 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 Constipation 03/17/2017 Hypertension 03/12/2017 Systemic lupus erythematosus 03/12/2017 Anxiety 03/06/2016 Vitamin D deficiency 06/16/2014 Carpal tunnel syndrome 11/26/2012 Encounters Date Type Department Care Team Description 06/11/2024 [facility] [address] [address] Marisol Gilman MD Covid-19 from Last 3 Months Immunizations Name Administration Dates Next Due Tdap Tetanus diptheria acell ular pertussis (Boostrix; Adacel) 7yo and older 11/09/2018 Medical History Medical History Date Comments Anxiety 03/06/2016 DX:Anxiety Carpal tunnel syndrome 11/26/2012 DX:Carpal tunnel syndrome Constipation 03/17/2017 DX:Constipation Hypertension 03/12/2017 DX:Hypertension Systemic lupus erythematosus (CMS/HCC) 03/12/2017 DX:Systemic lupus erythemato vivian (HCC) Vitamin D deficiency 06/16/2014 DX:Vitamin D deficiency Social History Tobacco Use Types Packs/Day Years Used Date Smoking Tobacco: Former Smokeless Tobacco: Never Alcohol Use Standard Drinks/Week Comments No 0 (1 standard drink = 0.6 oz pur e alcohol) Comments Unknown Sex and Gender Information Value Date Recorded Sex Assigned at Not on file Legal Sex Female 8:16 PM EST Gender Identity Not on file Sexual Orientation Not on file Obstetrics History Last Filed Vital Signs Vital Sign Reading Time Taken Comments Blood Pressure 120/76 01/06/2024 4:19 PM EDT Pulse 82 01/06/2024 4:19 PM EDT Temperature - - Respiratory Rate - - Oxygen Saturation - - Inhaled Oxygen Concentration - - Weight 67.6 kg (149 lb) 07/17/2023 1:06 PM EDT Height 149.9 cm (4' 11 ) 07/17/2023 1:06 PM EDT Body Mass Index 30.09 07/17/2023 1:06 PM EDT Plan of Treatment Health Maintenance Due Date Last Done Comments Hepatitis B Vaccines (1 of 3 - 19+ 3-dose series) 01/14/2007 Cervical Cancer Screening: P ap Smear 01/14/2009 Depression Screening 03/16/2022 HIV Screening 03/16/2022 Medicare Annual Wellness Visit 03/16/2022 Social Influencers of Health Screening 03/16/2022 Hypertension/CHF/CAD Annual BMP Blood Test 09/13/2023 09/12/2022 Cholesterol Screening (Lipid Panel) 11/11/2023 11/10/2018 COVID-19 Vaccine (2023-2 5 season) 2023 Influenza Vaccine (Season Ended) 2024 03/12/2021, 02/23/2017, 01/27/2015 DTaP,Tdap,and Td Vaccines (3 - Td or Tdap) 05/15/2031 05/15/2021, 11/09/2018 Pneumococcal Vaccine: Pediatrics (0 to 5 Years) and At-Risk Patients (6 to 64 Years) Aged Out 02/23/2017 No longer eligible b ased on patient's age to complete this topic Hepatitis C Screening Completed 11/10/2018 HIB Vaccines Aged Out No longer eligi ble based on patient's age to complete this topic HPV Vaccines Aged Out No longer eligi ble based on patient's age to complete this topic Hepatitis A Vaccines Aged Out No long er eligible based on patient's age to complete this topic IPV Vaccines Aged Out No longer eligi ble based on patient's age to complete this topic MMR Vaccines Aged Out No longer eligi ble based on patient's age to complete this topic Meningococcal ACWY Vaccine Aged Out N o longer eligible based on patient's age to complete this topic Meningococcal B Vaccine Aged Out No l onger eligible based on patient's age to complete this topic RSV Immunization Patients Under 20 months Aged Out No longer eligible b ased on patient's age to complete this topic Varicella Vaccines Aged Out No longer eligible based on patient's age to complete this topic Procedures Procedure Name Priority Date/Time Associated Diagnosis Comments ANNUAL BMP BLOOD TEST Routine 09/12/2022 HEPATITIS C SCREENING Routine 11/10/2018 LIPID PANEL Routine 11/10/2018 from Last 3 Months or Most Recently Relevant to Health Maintenance Results * Annual BMP Blood Test (09/12/2022) Annual BMP Blood Test abstracted [facility] Provider HEALTH MAINTENANCE Final Result * Hepatitis C Screening (11/10/2018) Pathologist [facility] Hepatitis C Screening abstracted [facility] Provider HEALTH MAINTENANCE Final Result * (ABNORMAL) Lipid panel (11/10/2018) Pathologist [facility] LDL/HDL Ratio 3 0 - 4 Triglycerides 178(A) 0 - 150 mg/dL Cholesterol 154 0 - 200 mg/dL HDL 52 >=40 mg/dL LDL Cholesterol 67 0 - 100 mg/dL Blood Venous blood specimen / Unknown Historical Provider LAB BLOOD ORDERABLES Venita l Result from Last 3 Months or Most Recently Relevant to Health Maintenance Insurance MEDICAID - [place] [employer] MEDICARE Member Subscriber Plan / Payer (Ef fective 2018-Present) Name:Marc Dupree Relation to Subscriber:Self Name:Marc Dupree Payer ID:[id number] Group ID:[id number] Type:Not on file Address: [address] [place] [address] Care Teams Public Health Relationship Specialty Start Date End Date Marisol Gilman MD [address] [address] PCP - General Internal Medicine 02/23/18
--- OUTSIDE RECORDS SUMMARY | 2024-07-20 11:06 | XMS_ITS | Encounter Summary ---
Author Organization [facility] Address [address] [place] [address] Care Team Providers Care Openstack Developer Name Role Phone Marisol Gilman MD Primary Care Provider [phone] Marisol Gilman MD Unavailable [phone] Encounter Details Date Type Department Care Team Description 01/20/2024 Critical Care Nurse Report Medical Records [address] [place] [address] John Graduno MD Social History Tobacco Use Types Packs/Day [...] on filedocumented in this encounter Care Teams Openstack Developer Relationship Specialty Start Date End Date Marisol Gilman MD PCP - General Internal Medicine 02/23/18 Marisol Gilman MD Internal Medicine 02/23/18 documented as of this encounter
--- OUTSIDE RECORDS SUMMARY | 2024-07-20 11:07 | XMS_ITS | Encounter Summary ---
Author Organization [facility] Address [address] [place] [address] Care Team Providers Care Dipping Machine Operator Name Role Phone Marisol Gilman MD Primary Care Provider [phone] Marisol Gilman MD Unavailable [phone] Encounter Details Date Type Department Care Team Description 05/22/2021 Grocery Store Bagger Report Medical Records [address] [place] [address] John Garduno MD Social History Tobacco Use [...] on filedocumented in this encounter Care Teams Dipping Machine Operator Relationship Specialty Start Date End Date Marisol Gilman MD PCP - General Internal Medicine 02/23/18 Marisol Gilman MD Internal Medicine 02/23/18 documented as of this encounter
--- OUTSIDE RECORDS SUMMARY | 2024-07-20 11:07 | XMS_ITS | Encounter Summary ---
Author Organization [facility] Address [address] [place] [address] Care Team Providers Care Custom Framing Specialist Name Role Phone Marisol Gilman MD Primary Care Provider +1 [phone] Marisol Gilman MD Unavailable [phone] Encounter Details Date Type Department Care Team Description 12/09/2019 X Ray Equipment Mechanic Report Medical Records [address] [place] [address] John Garduno MD Social History Tobacco Use [...] on filedocumented in this encounter Care Teams Custom Framing Specialist Relationship Specialty Start Date End Date Marisol Gilman MD PCP - General Internal Medicine 02/23/18 Marisol Gilman MD Internal Medicine 02/23/18 documented as of this encounter
--- OUTSIDE RECORDS SUMMARY | 2024-07-20 11:07 | XMS_ITS | Encounter Summary ---
Author Organization [facility] Address [address] [place] [address] Care Team Providers Care Die Repairer Stamping Name Role Phone Marisol Gilman MD Primary Care Provider [phone] Marisol Gilman MD Unavailable [phone] Reason for Visit * Reason Onset Date Comments Medication 07/12/2022 Encounter Details Date Type Department Care Team Description 07/12/2022 Telephone Internal Medicine - [address], [address] [place] [address] Marisol Gilman MD [address] [place] [phone] Medication Social History Tobacco Use Types Packs/Day Years Used Date Smoking Tobacco: Former Smokeless Tobacco: Never Comments:on and off for a fe w years Alcohol Use Standard Drinks/Week Comments No 0 (1 standard drink = 0.6 oz pur e alcohol) Sex Assigned at Date Recorded Not on file documented as of this encounter Miscellaneous Notes * Telephone Encounter - Ellie Franklin - 07/16/2022 1:19 PM EDT No answer left message for patient to call the office. Called patient to go over providers mercy below to check how she is doing now in regards to anxiety? * Telephone Encounter - Marisol Gilman MD - 07/15/2022 6:12 AM EDT *ok,how is she now?? * Telephone Encounter - Kimi Clementina Rios - 07/12/2022 9:22 AM EDT Patient called last seen and request anxiety medication offered patient appt on Friday - M.[place]-Juan M Patient declined States she needs the medication today as she is moving and anxious about the move-informed her no availabe appt today. FYI documented in this encounter Plan of Treatment Not on file documented as of this encounter Visit Diagnoses Not on filedocumented in this encounter Care Teams Die Repairer Stamping Relationship Specialty Start Date End Date Marisol iGlman MD PCP - General Internal Medicine 02/23/18 Marisol Gilman MD Internal Medicine 02/23/18 documented as of this encounter
--- OUTSIDE RECORDS SUMMARY | 2024-07-20 11:07 | XMS_ITS | Encounter Summary ---
Author Organization [facility] Address [address] [place] [address] Care Team Providers Care Battery Vent Plug Inserter Name Role Phone Marisol Gilman MD Primary Care Provider [phone] Marisol Gilman MD Unavailable [phone] Reason for Visit * Reason Onset Date Comments Medication 11/21/2022 Encounter Details Date Type Department Care Team Description 11/21/2022 Refill Gastroenterology - [place] [address] [facility] [address] [place] [address] Ori Layton MD [address] [facility] [address] [place] [address] Medication Social History Tobacco Use Types Packs/Day [...] on filedocumented in this encounter Care Teams Battery Vent Plug Inserter Relationship Specialty Start Date End Date Marisol Gilman MD PCP - General Internal Medicine 02/23/18 Marisol Gilman MD Internal Medicine 02/23/18 documented as of this encounter
--- OUTSIDE RECORDS SUMMARY | 2024-07-20 11:07 | XMS_ITS | Encounter Summary ---
Author Organization [facility] Address [address] [place] [address] Care Team Providers Care Rope Making Machine Operator Name Role Phone Marisol Gilman MD Primary Care Provider [phone] Marisol Gilman MD Unavailable [phone] Encounter Details Date Type Department Care Team Description 03/27/2022 Senior Chemical Process Engineer Report Medical Records [address] [place] [address] Oli Funk Social History Tobacco Use Types [...] was confirmed or suspected to have Coronavirus/COVID-19? No / Unsure 03/20/2022 8:43 AM EST documented as of this encounter Plan of Treatment Not on file documented as of this encounter Visit Diagnoses Not on filedocumented in this encounter Care Teams Rope Making Machine Operator Relationship Specialty Start Date End Date Marisol Gilman MD PCP - General Internal Medicine 02/23/18 Marisol Gilman MD Internal Medicine 02/23/18 documented as of this encounter
--- OUTSIDE RECORDS SUMMARY | 2024-07-20 11:07 | XMS_ITS | Encounter Summary ---
Author Organization [facility] Address [address] [place] [address] Care Team Providers Care Functional Support Analyst Name Role Phone Marisol Gilman MD Primary Care Provider +[phone] Marisol Gilman MD Unavailable [phone] Encounter Details Date Type Department Care Team Description 01/10/2022 Gym Teacher Report Medical Records [address] [place] [address] John Garduno MD Social History Tobacco Use [...] on filedocumented in this encounter Care Teams Functional Support Analyst Relationship Specialty Start Date End Date Marisol Gilman MD PCP - General Internal Medicine 02/23/18 Marisol Gilman MD Internal Medicine 02/23/18 documented as of this encounter
--- OUTSIDE RECORDS SUMMARY | 2024-07-20 11:07 | XMS_ITS | Encounter Summary ---
Author Organization [facility] Address [address] [place] [address] Care Team Providers Care Bus Matron Name Role Phone Marisol Gilman MD Primary Care Provider [phone] Marisol Gilman MD Unavailable [phone] Reason for Visit * Reason Onset Date Comments TEST RESULTS 12/07/2019 Encounter Details Date Type Department Care Team Description 12/07/2019 Telephone Internal Medicine - [address], [address] [place] [address] Marisol Gilman MD [address] [place] [phone] TEST RESULTS Social History Tobacco Use Types Packs/Day Years Used Date Smoking Tobacco: Never Smokeless Tobacco: Never Sex Assigned at Date Recorded Not on file documented as of this encounter Miscellaneous Notes * Telephone Encounter - Kashif Gil PA-C - 12/07/2019 2:42 PM EDT Spoke to patient regarding results being unremarkable. Does have Lupus and will contact [facility] [employer] about new intermittment dizziness/vertigo symptoms and will place referral to neurology. * Telephone Encounter - Kashif Gil PA-C - 12/07/2019 1:27 PM EDT Have not received results from the lab she used * Telephone Encounter - Ama Aldrich 12/07/2019 1:20 PM EDT Inform patient: ANY URGENT OR ABNORMAL RESULTS WIILL RESULT IN A CALL BACK TO THE PATIENT MALLY. Type of test: :Lab work Date test was performed: 12/02/2019 Where was the test performed: [facility] Who ordered this test?: Kashif Gil Is the doctor here today?: YES Can the message wait until the doctor returns?: YES IF PATIENT'S PCP IS NOT IN INSTRUCT PATIENT THAT THEY WILL RECEIVE A CALL BACK WHEN THE PCP IS IN THE OFFICE NEXT. documented in this encounter Plan of Treatment Not on file documented as of this encounter Visit Diagnoses Not on filedocumented in this encounter Care Teams Bus Matron Relationship Specialty Start Date End Date Marisol Gilman MD PCP - General Internal Medicine 02/23/18 Marisol Gilman MD Internal Medicine 02/23/18 documented as of this encounter
--- OUTSIDE RECORDS SUMMARY | 2024-07-20 11:07 | XMS_ITS | Encounter Summary ---
Author Organization [facility] Address [address] [place] [address] Care Team Providers Care Roving Hauler Name Role Phone Marisol Gilman MD Primary Care Provider [phone] Marisol Gilman MD Unavailable [phone] Encounter Details Date Type Department Care Team Description 10/11/2021 Jordan Man Report Medical Records [address] [place] [address] John Garduno MD Social History Tobacco Use [...] on filedocumented in this encounter Care Teams Roving Hauler Relationship Specialty Start Date End Date Marisol Gilman MD PCP - General Internal Medicine 02/23/18 Marisol Gilman MD Internal Medicine 02/23/18 documented as of this encounter
--- OUTSIDE RECORDS SUMMARY | 2024-07-20 11:07 | XMS_ITS | Encounter Summary ---
Author Organization [facility] Address [address] [place] [address] Care Team Providers Care Heading And Priming Tool Setter Name Role Phone Marisol Gilman MD Primary Care Provider [phone] Marisol Gilman MD Unavailable [phone] Encounter Details Date Type Department Care Team Description 09/16/2022 Release of Information Medical Records [address] [place] [address] Abstract, Provider Social History Tobacco Use Types [...] suspected to have Coronavirus/COVID-19? No / Unsure 09/12/2022 1:11 PM EDT documented as of this encounter Plan of Treatment Not on file documented as of this encounter Visit Diagnoses Not on filedocumented in this encounter Care Teams Heading And Priming Tool Setter Relationship Specialty Start Date End Date Marisol Gilman MD PCP - General Internal Medicine 02/23/18 Marisol Gilman MD Internal Medicine 02/23/18 documented as of this encounter
--- OUTSIDE RECORDS SUMMARY | 2024-07-20 11:07 | XMS_ITS | Encounter Summary ---
Author Organization [facility] Address [address] [place] [address] Care Team Providers Care Marketing Database Analyst Name Role Phone Marisol Gilman MD Primary Care Provider [phone] Marisol Gilman MD Unavailable [phone] Encounter Details Date Type Department Care Team Description 10/03/2022 Factory Engineer Report Medical Records [address] [place] [address] Oli Funk Social History Tobacco Use Types [...] filedocumented in this encounter Care Teams Marketing Database Analyst Relationship Specialty Start Date End Date Marisol Gilman MD PCP - General Internal Medicine 02/23/18 Marisol Gilman MD Internal Medicine 02/23/18 documented as of this encounter
--- OUTSIDE RECORDS SUMMARY | 2024-07-20 11:07 | XMS_ITS | Encounter Summary ---
Author Organization [facility] Address [address] [facility] [address] [place] [address] Phone Care Team Providers Care Hand Fretted Instrument Maker Name Role Phone Marisol Gilman MD Primary Care Provider [phone] Reason for Visit * Reason Comments Med Refill Encounter Details Date Type Department Care Team ([facility] st Contact Info) Description 05/26/2020 Refill [facility] [address] [facility] [address] [place] [phone] John Garduno MD Social History Tobacco Use Types Packs/Day Years Used Date Smoking Tobacco: Former Comments Unknown Sex and Gender Information Value Date Recorded Sex Assigned at Not on file Legal Sex Female 5:03 PM EST Gender Identity Not on file Sexual Orientation Not on file documented as of this encounter Plan of Treatment Not on file documented as of this encounter Visit Diagnoses Not on filedocumented in this encounter Care Teams Hand Fretted Instrument Maker Relationship Specialty Start Date End Date Marisol Gilman MD [address] [facility] [address] [place] [phone] PCP - General 04/24/20 documented as of this encounter
--- OUTSIDE RECORDS SUMMARY | 2024-07-20 11:07 | XMS_ITS | Encounter Summary ---
Author Organization [facility] Address [address] [place] [address] Care Team Providers Care Diabetes Physician Name Role Phone Marisol Gilman MD Primary Care Provider [phone] Marisol Gilman MD Unavailable [phone] Encounter Details Date Type Department Care Team Description 03/02/2021 Orders Only Gastroenterology - [address] [place] [phone] Mignon Klein DScPAS Generalized abdominal pain; Nausea; RUQ abdominal pain Social History Tobacco Use Types Packs/Day Years Used Date Smoking Tobacco: Former Smokeless Tobacco: Never Comments:on and off for a fe w years Alcohol Use Standard Drinks/Week Comments No 0 (1 standard drink = 0.6 oz pur e alcohol) Sex Assigned at Date Recorded Not on file documented as of this encounter Progress Notes * Mignon Klein PA-C - 03/04/2021 3:50 PM EST Call patient and let her know that her ultrasound of the gallbladder was normal thank you documented in this encounter Plan of Treatment Not on file documented as of this encounter Procedures Procedure Name Priority Date/Time Associated Diagnosis Comments SONO ABDOMEN COMPLETE Routine 03/02/2021 Generalized abdominal pain Nausea RUQ abdominal pain documented in this encounter Results * SONO ABDOMEN COMPLETE (03/02/2021) Mignon Klein DScPAS ULTRASOUND documented in this encounter Visit Diagnoses Diagnosis Generalized abdominal pain Abdominal pain, generalized Nausea Nausea alone RUQ abdominal pain Abdominal pain, right upper quadrant documented in this encounter Care Teams Diabetes Physician Relationship Specialty Start Date End Date Marisol Gilman MD PCP - General Internal Medicine 02/23/18 Marisol Gilman MD Internal Medicine 02/23/18 documented as of this encounter
--- OUTSIDE RECORDS SUMMARY | 2024-07-20 11:07 | XMS_ITS | Encounter Summary ---
Author Organization [facility] Address [address] [place] [address] Care Team Providers Care Cooker Sulfite Name Role Phone Marisol Gilman MD Primary Care Provider [phone] Marisol Gilman MD Unavailable [phone] Encounter Details Date Type Department Care Team Description 06/21/2019 Gold Leaf Gilder Report Medical Records [address] [place] [address] Oli Funk Social History Tobacco Use Types Packs/Day Years Used Date Smoking Tobacco: Never Smokeless Tobacco: Never Sex Assigned at Date Recorded Not on file documented as of this encounter Plan of Treatment Not on file documented as of this encounter Visit Diagnoses Not on filedocumented in this encounter Care Teams Cooker Sulfite Relationship Specialty Start Date End Date Marisol Gilman MD PCP - General Internal Medicine 02/23/18 Marisol Gilman MD Internal Medicine 02/23/18 documented as of this encounter
--- OUTSIDE RECORDS SUMMARY | 2024-07-20 11:07 | XMS_ITS | Encounter Summary ---
Author Organization [facility] [place] [facility] Address [address] [place] [address] Care Team Providers Care Explosive Technician Name Role Phone Marisol Gilman MD Primary Care Provider [phone] Marisol Gilman MD Unavailable [phone] Encounter Details Date Type Department Care Team Description 01/30/2021 Electric Lift Truck Driver Report Medical Records [address] [place] [address] John Garduno MD Social History Tobacco Use [...] have Coronavirus / COVID-19? No / Unsure 01/25/2021 1:05 PM EDT documented as of this encounter Plan of Treatment Not on file documented as of this encounter Visit Diagnoses Not on filedocumented in this encounter Care Teams Explosive Technician Relationship Specialty Start Date End Date Marisol Gilman MD PCP - General Internal Medicine 02/23/18 Marisol Gilman MD Internal Medicine 02/23/18 documented as of this encounter
--- OUTSIDE RECORDS SUMMARY | 2024-07-20 11:07 | XMS_ITS | Encounter Summary ---
Author Organization [facility] Address [address] [place] [address] Care Team Providers Care Composite Worker Name Role Phone Marisol Gilman MD Primary Care Provider [phone] Marisol Gilman MD Unavailable [phone] Encounter Details Date Type Department Care Team Description 08/31/2019 Graduate Studies Dean Report Medical Records [address] [place] [address] John Garduno MD Social History Tobacco Use Types Packs/Day Years Used Date Smoking Tobacco: Never Smokeless Tobacco: Never Sex Assigned at Date Recorded Not on file documented as of this encounter Plan of Treatment Not on file documented as of this encounter Visit Diagnoses Not on filedocumented in this encounter Care Teams Composite Worker Relationship Specialty Start Date End Date Marisol Gilman MD PCP - General Internal Medicine 02/23/18 Marisol Gilman MD Internal Medicine 02/23/18 documented as of this encounter
[2024-07-20 19:05] LABS: Anion Gap 12 (12-20); Blood Urea Nitrogen 10 mg/dL (9-16); Carbon Dioxide 22 mmol/L (22-29); Chloride 109 mmol/L (96-108); Estimated Glomerular Filt Rate > 60; Sodium 139 mmol/L (135-145)
[2024-07-20 19:31] LABS: Creatinine Urine 94.91 mg/dL; Protein/Creatinine Ratio, Ur 1.34 (<0.2); Total Protein Urine Random 127 mg/dL (<12)
[2024-07-21 08:48] LABS: Complement C3 131 mg/dL (83-193)
== END 2024-07-20 09:42 | disposition home or self-care (01) ==
LOC: HO.HKASLDS 09:41
PROVIDERS: Visit Provider Internal Medicine Nephrology
DX: I15.1 Hypertension secondary to other renal disorders (principal); R80.8 Other proteinuria; M32.14 Glomerular disease in systemic lupus erythematosus
CPT/HCPCS: 36415; 80051; 82565; 82570; 84156; 84520; 86160

== ENCOUNTER 2024-08-03 10:58 | Outpatient (AMB) | payer OTHER, SELFPAY ==
--- NOTE | 2024-08-03 11:43 | HO.NEPHOV_ITS ---
Vital Signs 08/03/24 11:44 Height 4 ft 11 in Weight 151 lb 4 oz BMI 30.5 BP 122/82 Blood Pressure Location Rt brachial Position Sitting Intake Visit Reasons: rscng missed 07/22 appt-Conf Fifth Grade Teacher Required: No Accompanied by: Self / Same As Patient Allergies shrimp Allergy (Intermediate, Verified 08/03/24 11:43) THROAT SWELLING HPI Comments Details: Kaylah was seen in follow-up of her proteinuria, hypertension and history of lupus nephritis. 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 She had low chronicity index but high activity index. Ever since she had 1 more child. She has stopped taking Plaquenil, losartan as well as mycophenolate for a long period of time. She has history of noncompliance. She denies any active joint swelling, joint pains, new skin rashes, pedal edema, visual disturbances, chest pain, shortness of breath, blood clots or spontaneous abortions. She has no history of antiphospholipid antibody. She is denying taking excessive nonsteroidal anti-inflammatories. [facility] Medical History Hypertension Proteinuria, unspecified SLE glomerulonephritis syndrome, WHO class II Surgical History H/O section Social History Alcohol intake: never Patient Tobacco Use Status: Never used Tobacco Review of Systems Const All systems reviewed & are unremarkable except as noted in HPI and below Physical Exam Vital Signs: Last Vital Signs BP 122/82 08/03/24 11:44 BMI result Body Mass Index 30.5 Const General: comfortable and no acute distress Orientation/consciousness: patient oriented x3 HEENT Head: Yes normocephalic Mouth: Normal oral and palatal mucosa present Eyes EOM: EOMs intact bilaterally Neck Neck: Yes supple Resp Auscultation: clear to auscultation bilaterally Cardio Jugular venous distension: no JVD Rate: regular rate GI Palpation (GI): Soft to palpation Auscultation: normal bowel sounds General: Yes no CVA tenderness Back/Spine/Pelvis Back: no CVA tenderness Skin General skin exam: no rashes or lesions noted Neuro General: patient oriented x3 and moves all extremities Extrem General: Yes no pedal edema Results Reviewed Nephrology Results: Hgb 12.6 g/dl (12.0-16.0) 07/31/23 WBC 8.0 X10*3/uL (4.8-10.8) 07/31/23 Plt Count 327 X10*3/uL (160-400) 07/31/23 Sodium 139 mmol/L (135-145) 07/20/24 Potassium 4.0 mmol/L (3.3-5.1) 07/20/24 Chloride 109 mmol/L (96-108) H 07/20/24 Carbon Dioxide 22 mmol/L (22-29) 07/20/24 BUN 10 mg/dL (9-16) 07/20/24 Creatinine 0.57 mg/dL (0.5-1.4) 07/20/24 Urine Protein >=1000 (4+) mg/dL (Neg-Trace) H 4 Urine Creatinine 94.91 mg/dL 07/20/24 Protein/Creatinin Ratio 1.34 (<0.2) H 07/20/24 Assessment & Plan Assessment & Plan (1) SLE glomerulonephritis syndrome, WHO class II: Code(s): M32.14 - Glomerular disease in systemic lupus erythematosus Category: Medical (2) Proteinuria, unspecified: Code(s): R80.9 - Proteinuria, unspecified Category: Medical Qualifiers: Proteinuria type: other Qualified Code(s): R80.8 - Other proteinuria (3) Hypertension: Code(s): I10 - Essential (primary) hypertension Category: Medical Qualifiers: Hypertension type: secondary to other renal disorders Qualified Code(s): I15.1 - Hypertension secondary to other renal disorders Plan Dianchesezequiel had been noncompliant with her management of lupus nephritis. She had started and stopped immunosuppressions multiple times. She has history of receiving intravenous Cytoxan as well as pulse methylprednisone along with oral steroids. She is on losartan 50 mg twice daily. I reinforced the fact that she needs to be compliant with medications. Her need for immunosuppression and other medications will be based on evolving data from the lab work . She does not need cellcept now. She may need Jardiance. Answered all her questions. Lab ordered . Follow-up appointment given. Orders: Orders Creatinine 3 Months I15.1 - Hypertension secondary to other renal disorders, M32.14 - Glomerular disease in systemic lupus erythematosus, R80.8 - Other proteinuria Electrolytes 3 Months I15.1 - Hypertension secondary to other renal disorders, M32.14 - Glomerular disease in systemic lupus erythematosus, R80.8 - Other proteinuria Protein Creatinine Ratio, Ur 3 Months I15.1 - Hypertension secondary to other renal disorders, M32.14 - Glomerular disease in systemic lupus erythematosus, R80.8 - Other proteinuria Blood Urea Nitrogen 3 Months I15.1 - Hypertension secondary to other renal disorders, M32.14 - Glomerular disease in systemic lupus erythematosus, R80.8 - Other proteinuria Medications: Changed From losartan 50 mg PO BID To losartan 50 mg PO BID 90 days 180 tabs 3RF Coding Level of Care Code Est Pt Level 4 (49827) Diagnoses SLE glomerulonephritis syndrome, WHO class II M32.14 Other proteinuria R80.8 Proteinuria type: other Hypertension secondary to other renal disorders I15.1 Hypertension type: secondary to other renal disorders
[2024-08-03 11:44] VITALS: BP 122/82; BMI 30.5
--- OUTSIDE RECORDS SUMMARY | 2024-08-03 13:04 | XMS_ITS | Clinical Summary ---
Author Organization [facility] Address [address] [place] [address] Phone Care Team Providers Care Metal Tank Builder Name Role Phone Marisol Gilman MD Primary Care Provider [phone] Allergies No known active allergies Medications fexofenadine (JOSE) 180 mg tablet Take 1 Tablet by mouth daily for 15 days. 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 Constipation 03/17/2017 Hypertension 03/12/2017 Systemic lupus erythematosus (CMS/HCC V24, CMS/H CC V28) 03/12/2017 Anxiety 03/06/2016 Vitamin D deficiency 06/16/2014 Carpal tunnel syndrome 11/26/2012 Encounters Date Type Department Care Team Description 06/11/2024 Telephone Internal Medicine [address] [address] Marisol Gilman MD Covid-19 from Last 3 Months Immunizations Name Administration Dates Next Due Tdap Tetanus diptheria acell ular pertussis (Boostrix; Adacel) 7yo and older 11/09/2018 Medical History Medical History Date Comments Anxiety 03/06/2016 DX:Anxiety Carpal tunnel syndrome 11/26/2012 DX:Carpal tunnel syndrome Constipation 03/17/2017 DX:Constipation Hypertension 03/12/2017 DX:Hypertension Systemic lupus erythematosus (CMS/HCC V24, CMS/HCC V28) 03/12/2017 DX:Systemic lupus erythemato vivian (HCC) Vitamin [...] 07/17/2023 1:06 PM EDT Plan of Treatment Upcoming Encounters Date Type Department Care Team (Late st Contact Info) Description 08/03/2024 3:30 PM EDT Office Visit Internal Medicine - [place] [address] [facility] [address] [place] [address] Marisol Gilman MD [address] [facility] [address] [place] [address] Health Maintenance Due Date Last Done Comments COVID-19 Vaccine (#1) 01/14/1993 Hepatitis B Vaccines (1 of 3 - 19+ 3-dose series) 01/14/2007 Cervical Cancer Screening: P ap Smear 01/14/2009 Depression Screening 03/16/2022 HIV Screening 03/16/2022 Medicare Annual Wellness Visit 03/16/2022 Social Influencers of Health Screening 03/16/2022 Hypertension/CHF/CAD Annual BMP Blood Test 09/13/2023 09/12/2022 Cholesterol Screening (Lipid Panel) 11/11/2023 11/10/2018 Influenza Vaccine (Season Ended) 2024 03/12/2021, 02/23/2017, [...] Results * Annual BMP Blood Test (09/12/2022) Pathologist [facility] Annual BMP Blood Test abstracted [facility] Provider HEALTH MAINTENANCE Final Result * Hepatitis C Screening (11/10/2018) [facility] Hepatitis C Screening abstracted [facility] Provider HEALTH MAINTENANCE Final Result * (ABNORMAL) Lipid panel (11/10/2018) [facility] LDL/HDL Ratio 3 0 - 4 Triglycerides [...] [employer] Member Subscriber Plan / Payer ( fective 2018-Present) Name:Marc Dupree Relation to Subscriber:Self Name:Marc Dupree Payer ID:[id number] Group ID:[id number] Type:Not on file Address: [address] [place] [address] Care Teams Metal Tank Builder Relationship Specialty Start Date End Date Marisol Gilman MD [address] [place] [phone] PCP - General Internal Medicine 02/23/18
--- OUTSIDE RECORDS SUMMARY | 2024-08-03 13:04 | XMS_ITS | Encounter Summary ---
Author Organization [facility] Address [address] [facility] [address] [place] [address] Phone Care Team Providers Care Review Scheduling Coordinator Name Role Phone Marisol Gilman MD Primary Care Provider [phone] Reason for Visit * Reason Comments Med Refill Encounter Details Date Type Department Care Team ([facility] st Contact Info) Description 05/26/2020 Refill [facility] [address] [facility] [address] [place] [phone] John Garduno MD Social History Tobacco Use [...] on filedocumented in this encounter Care Teams Review Scheduling Coordinator Relationship Specialty Start Date End Date Marisol Gilman MD [address] [facility] 200 [place] [phone] PCP - General 04/24/20 documented as of this encounter
--- OUTSIDE RECORDS SUMMARY | 2024-08-03 13:04 | XMS_ITS | Clinical Summary ---
Author Organization [facility] Address [address] [facility] [address] [place] [address] Phone Care Team Providers Care Shearing Shed Hand Name Role Phone Marisol Gilman MD Primary Care Provider Allergies Active Allergy Reactions Criticality Noted Date [...] 06/16/2014 021 Carpal tunnel syndrome 11/26/201210/11 Immunizations Immunization Administration Dates Next Due Pneumococcal Polysaccharide 02/23/2017 [...] - 19+ 3-dose series) 01/14 Pneumococcal Vaccine: Peds ( 0 to 5 Years) and At-Risk Patients (6 to 49 Years) (2 of 2 - PCV) 02/23/2018 02/23/2017 Influenza Vaccine (Season Ended) 2024 Pneumococcal Vaccine: 50+ Years Discontinued 7 Insurance ([id number]) [place] [address] ([id number]) Care Teams Shearing Shed Hand Relationship Specialty Start Date End Date Marisol Gilman MD [address] [place] [phone] PCP - General 04/24/20
== END 2024-08-03 12:03 | disposition home or self-care (01) ==
LOC: HO.HKAS 10:59
PROVIDERS: Visit Provider Internal Medicine Nephrology
DX: M32.14 Glomerular disease in systemic lupus erythematosus (principal); R80.8 Other proteinuria; I15.1 Hypertension secondary to other renal disorders
CPT/HCPCS: 99214

== ENCOUNTER → 2024-08-03 10:58 | Outpatient (BNVA) | payer OTHER, SELFPAY | PROVIDERS: Visit Provider Internal Medicine Nephrology | DX: M32.14 Glomerular disease in systemic lupus erythematosus (principal); R80.8 Other proteinuria; I15.1 Hypertension secondary to other renal disorders | CPT/HCPCS: 99212 ==

== ENCOUNTER 2024-12-21 14:27 | Outpatient (REF) | payer OTHER, SELFPAY ==
[2024-12-21 18:52] LABS: Anion Gap 10 (12-20); Blood Urea Nitrogen 10 mg/dL (9-16); Carbon Dioxide 25 mmol/L (22-29); Chloride 107 mmol/L (96-108); Estimated Glomerular Filt Rate > 60; Potassium 3.8 mmol/L (3.3-5.1); Sodium 138 mmol/L (135-145)
[2024-12-21 19:33] LABS: Protein/Creatinine Ratio, Ur 2.99 (<0.2); Total Protein Urine Random 274 mg/dL (<12)
== END 2024-12-21 14:28 | disposition home or self-care (01) ==
LOC: HO.HKASLDS 14:27
PROVIDERS: Visit Provider Internal Medicine Nephrology
DX: I15.1 Hypertension secondary to other renal disorders (principal); M32.14 Glomerular disease in systemic lupus erythematosus; R80.8 Other proteinuria
CPT/HCPCS: 36415; 80051; 82565; 82570; 84156; 84520; 86160; 86225; 99212

== ENCOUNTER 2024-12-21 14:27 | Outpatient (AMB) | payer OTHER, SELFPAY ==
--- NOTE | 2024-12-21 14:34 | HO.NEPHOV ---
Vital Signs 12/21/24 14:35 Height 4 ft 11 in Weight 151 lb BMI 30.5 BP 130/90 H Blood Pressure Location Lt brachial Position Sitting Intake Visit Reasons: FU Gel Coat Sprayer Required: No Accompanied by: Daughter Allergies shrimp Allergy (Intermediate, Verified 12/21/24 14:35) THROAT SWELLING HPI Comments Details: Kaylah was seen in follow-up of her proteinuria, hypertension and history of lupus nephritis. 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 She had low chronicity index but high activity index. Ever since she had 1 more child. She has stopped taking Plaquenil, losartan as well as mycophenolate for a long period of time. She has history of noncompliance. She denies any active joint swelling, joint pains, new skin rashes, pedal edema, visual disturbances, chest pain, shortness of breath, blood clots or spontaneous abortions. She has no history of antiphospholipid antibody. She is denying taking excessive nonsteroidal anti-inflammatories. [facility] Medical History Hypertension Proteinuria, unspecified SLE glomerulonephritis syndrome, WHO class II Surgical History H/O section Social History Alcohol intake: never Patient Tobacco Use Status: Never used Tobacco Review of Systems Const All systems reviewed & are unremarkable except as noted in HPI and below Physical Exam Vital Signs: Last Vital Signs BP 130/90 H 12/21/24 14:35 BMI result Body Mass Index 30.5 Const General: comfortable and no acute distress Orientation/consciousness: patient oriented x3 HEENT Head: Yes normocephalic Mouth: Normal oral and palatal mucosa present Eyes EOM: EOMs intact bilaterally Neck Neck: Yes supple Resp Auscultation: clear to auscultation bilaterally Cardio Jugular venous distension: no JVD Rate: regular rate GI Palpation (GI): Soft to palpation Auscultation: normal bowel sounds General: Yes no CVA tenderness Back/Spine/Pelvis Back: no CVA tenderness Skin General skin exam: no rashes or lesions noted Neuro General: patient oriented x3 and moves all extremities Extrem General: Yes no pedal edema Results Reviewed Nephrology Results: Sodium, (135-145) 139 mmol/L 07/20/24 Potassium, (3.3-5.1) 4.0 mmol/L 07/20/24 Chloride, (96-108) 109 mmol/L H 07/20/24 Carbon Dioxide, (22-29) 22 mmol/L 07/20/24 BUN, (9-16) 10 mg/dL 07/20/24 Creatinine, (0.5-1.4) 0.57 mg/dL 07/20/24 Urine Creatinine 94.91 mg/dL 07/20/24 Protein/Creatinin Ratio, (<0.2) 1.34 H 07/20/24 Assessment & Plan Assessment & Plan (1) Proteinuria, unspecified: Code(s): R80.9 - Proteinuria, unspecified Category: Medical Qualifiers: Proteinuria type: other Qualified Code(s): R80.8 - Other proteinuria (2) SLE glomerulonephritis syndrome, WHO class II: Code(s): M32.14 - Glomerular disease in systemic lupus erythematosus Category: Medical (3) Hypertension: Code(s): I10 - Essential (primary) hypertension Category: Medical Qualifiers: Hypertension type: secondary to other renal disorders Qualified Code(s): I15.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 She had started and stopped immunosuppressions multiple times. She has history of receiving intravenous Cytoxan as well as pulse methylprednisone along with oral steroids. I restarted losartan 50 mg twice daily. I reinforced the fact that she needs to be compliant with medications. Her need for immunosuppression and other medications will be based on evolving data from the lab work . She does not need cellcept now. She may need Jardiance. Answered all her questions. Lab ordered . Follow-up appointment given. Orders: Orders Anti DNA DS Antibody 3 Months I15.1 - Hypertension secondary to other renal disorders, M32.14 - Glomerular disease in systemic lupus erythematosus, R80.8 - Other proteinuria Complement C3 3 Months I15.1 - Hypertension secondary to other renal disorders, M32.14 - Glomerular disease in systemic lupus erythematosus, R80.8 - Other proteinuria Electrolytes 3 Months I15.1 - Hypertension secondary to other renal disorders, M32.14 - Glomerular disease in systemic lupus erythematosus, R80.8 - Other proteinuria Blood Urea Nitrogen 3 Months I15.1 - Hypertension secondary to other renal disorders, M32.14 - Glomerular disease in systemic lupus erythematosus, R80.8 - Other proteinuria Creatinine 3 Months I15.1 - Hypertension secondary to other renal disorders, M32.14 - Glomerular disease in systemic lupus erythematosus, R80.8 - Other proteinuria Protein Creatinine Ratio, Ur 3 Months I15.1 - Hypertension secondary to other renal disorders, M32.14 - Glomerular disease in systemic lupus erythematosus, R80.8 - Other proteinuria Complement C4 3 Months I15.1 - Hypertension secondary to other renal disorders, M32.14 - Glomerular disease in systemic lupus erythematosus, R80.8 - Other proteinuria Protein Creatinine Ratio, Ur Today I15.1 - Hypertension secondary to other renal disorders, M32.14 - Glomerular disease in systemic lupus erythematosus, R80.8 - Other proteinuria Coding Level of Care Code Est Pt Level 4 (59416) Diagnoses Other proteinuria R80.8 Proteinuria type: other SLE glomerulonephritis syndrome, WHO class II M32.14 Hypertension secondary to other renal disorders I15.1 Hypertension type: secondary to other renal disorders
[2024-12-21 14:35] VITALS: BP 130/90; BMI 30.5
--- OUTSIDE RECORDS SUMMARY | 2024-12-21 17:01 | XMS_ITS | Clinical Summary ---
Author Organization [facility] Address [address] [place] [phone] Phone Care Team Providers Care Fermentation Operator Name Role Phone Pcp, Not Required Primary Care Provider Unavaila ble Social History Tobacco Use Types Packs/Day Years Used Date Smoking Tobacco: Never Assessed Education Answer Date Recorded Are you interested in more education? Not on john paul e 08/08/2022 Are you concerned about learning? Not on file 08/08/2022 No 08/08/2022 No 08/08/2022 Digital Access Answer Date Recorded No 09/09/2022 No 09/09/2022 No 09/09/2022 Reliable internet access at home? Not on file 09/09/2022 Device with a working camera? Not on file Comments Unknown Sex and Gender Information Value Date Recorded Sex Assigned at Not on file Legal Sex Female 9:08 PM EDT Gender Identity Not on file Sexual Orientation Not on file Plan of Treatment Health Maintenance Due Date Last Done Comments DEPRESSION SCREENING 2000 SMOKING Hx and SMOKELESS TOB ACCO SCREENING 01/14/2001 HEPATITIS C SCREENING 01/14/2006 HIV ONE-TIME SCREENING (18-6 5 YEARS) 01/14/2006 PAP SMEAR 01/14/2009 INFLUENZA VACCINE (#1) 2024 COVID-19 VACCINE (2023-2 5 season) 2024 Adult Td,Tdap Booster 11/09/2028 11/09/2018 HEPATITIS A VACCINES Aged Out No long er eligible based on patient's age to complete this topic HIB VACCINES Aged Out No longer eligi ble based on patient's age to complete this topic MENINGOCOCCAL VACCINES (ACWY) Aged Out No longer eligible based on patient's age to complete this topic MENINGOCOCCAL VACCINES (B) Aged Out N o longer eligible based on patient's age to complete this topic PNEUMOCOCCAL VACCINES (0-49 years) Aged Out No longer eligible based on patient's age to complete this topic Medical Devices Not on file Insurance Care Teams Fermentation Operator Relationship Specialty Start Date End Date Pcp, Not Required [address] [place] [address] PCP - General 11/16/17 Additional Source Comments The information contained in this document represents components of the legal health record. It is not the complete legal health record.[facility]
--- OUTSIDE RECORDS SUMMARY | 2024-12-21 17:01 | XMS_ITS | Clinical Summary ---
Author Organization 175 [facility] Address [address] [place] [address] Phone Care Team Providers Care Composite Boat Builder Name Role Phone Marisol Gilman MD Primary Care Provider [phone] Allergies No known active allergies Medications losartan (COZAAR) 50 mg tablet Take 1 tablet (50 mg total) by mouth 2 (two) times a day. Active acetaminophen (TYLENOL 8 HOUR) 650 mg 8 hr tablet Take 1 tablet (650 mg total) by mouth every 8 (eight) hours if needed for mild pain. Do not crush, chew, or split. Active cetirizine (ZyrTEC) 10 mg tablet Take 1 tablet (10 mg total) by mouth 1 (one) time each day. 30 each 3 5 Active ketotifen fumarate (Zaditor) 0.035 % ophthalmic solution Administer 1 drop into both eyes 2 (two) times a day. 5 mL 3 5 Active benzonatate (TESSALON) 200 mg capsule Take 1 capsule (200 mg total) by mouth 3 (three) times a day if needed for cough. Do not crush or chew. 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 Constipation 03/17/2017 Hypertension 03/12/2017 Systemic lupus erythematosus (CMS/HCC V24, CMS/H CC V28) 03/12/2017 Anxiety 03/06/2016 Vitamin D deficiency 06/16/2014 Carpal tunnel syndrome 11/26/2012 Immunizations Name Administration Dates Next Due Tdap [...] Sign Reading Time Taken Comments Blood Pressure 120/84 09/03/2024 1:10 PM EDT Pulse 88 09/03/2024 1:10 PM EDT Temperature 36.6 C (97.8 F) 09/03/2024 1:10 PM EDT Respiratory Rate - - Oxygen Saturation 100% 09/03/2024 1:10 PM EDT Inhaled Oxygen Concentration - - Weight 67.1 kg (148 lb) 09/03/2024 1:10 PM EDT Height 149.9 cm (4' 11 ) 07/17/2023 1:06 PM EDT Body Mass Index 29.89 07/17/2023 1:06 PM EDT Plan of Treatment Upcoming Encounters Date Type Department Care Team (Late st Contact Info) Description 02/08/2025 11:15 AM EDT Office Visit Internal Medicine - [place] [address] [facility] 200 [place] [address] Marisol Gilman MD [address] [facility] 200 [place] [address] Health Maintenance Due Date Last Done Comments COVID-19 Vaccine (#1) 01/14/1993 Hepatitis B Vaccines (1 of 3 - 19+ 3-dose series) 01/14/2007 Cervical Cancer Screening: P ap Smear 01/14/2009 HIV Screening 03/16/2022 Medicare Annual Wellness Visit 03/16/2022 Social Influencers of Health Screening 03/16/2022 Hypertension/CHF/CAD Annual BMP Blood Test 09/13/2023 09/12/2022 Cholesterol Screening (Lipid Panel) 11/11/2023 11/10/2018 Depression Screening 04/14/2024 Influenza Vaccine (#1) 2024 , 02/23/2017, 01/27/2015 DTaP,Tdap,and Td Vaccines (3 - Td or Tdap) 05/15/2031 05/15/2021, 11/09/2018 Pneumococcal Vaccine: Pediatrics (0 to 5 Years) and At-Risk Patients (6 to 49 Years) Aged Out 02/23/2017 No longer eligible [...] * Annual BMP Blood Test (09/12/2022) Pathologist [facility] Annual BMP Blood Test abstracted Historical Provider HEALTH MAINTENANCE Final Result * Hepatitis C Screening (11/10/2018) Pathologist [facility] Hepatitis C Screening abstracted Historical Provider HEALTH MAINTENANCE Final Result * (ABNORMAL) Lipid panel (11/10/2018) Pathologist [facility] LDL/HDL Ratio 3 0 - 4 Triglycerides 178(A) 0 - 150 mg/dL Cholesterol 154 0 - 200 mg/dL HDL 52 >=40 mg/dL LDL Cholesterol 67 0 - 100 mg/dL Blood Venous blood specimen / Unknown Result [facility] Historical Provider LAB BLOOD ORDERABLES Venita l Result from Last 3 Months or Most Recently Relevant to Health Maintenance Insurance [facility] MEDICARE Member Subscriber Plan / Payer (Ef fective 2018-Present) Name:HANH DUPREE Relation to Subscriber:Self Name:Hanh Dupree Payer ID:[id number] Group ID:[id number] Type:Not on file Address: [place] [address] [place] [address] Care Teams Composite Boat Builder Relationship Specialty Start Date End Date Marisol Gilman MD [address] [place] [phone] PCP - General Internal Medicine 02/23/18
--- OUTSIDE RECORDS SUMMARY | 2024-12-21 17:01 | XMS_ITS | Clinical Summary ---
Author Organization [facility] Address [address] [facility] [address] [place] [address] Phone Care Team Providers Care Development Educator Name Role Phone Marisol Gilman MD Primary Care Provider [phone] Allergies Active Allergy Reactions Criticality Noted Date [...] 2 - PCV) 02/23/2018 02/23/2017 Influenza Vaccine (#1) 2024 Pneumococcal Vaccine: 50+ Years Discontinued 7 Insurance ([id number]) [place] [address] ([id number]) Care Teams Development Educator Relationship Specialty Start Date End Date Marisol Gilman MD [address] [place] [phone] PCP - General 04/24/20
--- OUTSIDE RECORDS SUMMARY | 2024-12-21 17:01 | XMS_ITS | Encounter Summary ---
Author Organization [facility] Address [address] [facility] 200 [place] [address] Phone Care Team Providers Care Admission Nurse Name Role Phone Marisol Gilman MD Primary Care Provider [phone] Reason for Visit * Reason Comments Med Refill Encounter Details Date Type Department Care Team ([facility] st Contact Info) Description 05/26/2020 Refill [facility] [address] [facility] 200 [place] [phone] Jhon Garduno MD Social History Tobacco Use Types [...] on filedocumented in this encounter Care Teams Admission Nurse Relationship Specialty Start Date End Date Marisol Gilman MD 175 [facility] 200 [place] [phone] PCP - General 04/24/20 documented as of this encounter
== END 2024-12-21 15:33 | disposition home or self-care (01) ==
LOC: HO.HKAS 14:28
PROVIDERS: Visit Provider Internal Medicine Nephrology
DX: R80.8 Other proteinuria (principal); M32.14 Glomerular disease in systemic lupus erythematosus; I15.1 Hypertension secondary to other renal disorders
CPT/HCPCS: 99214

== ENCOUNTER 2025-03-22 11:12 | Outpatient (AMB) | payer OTHER, SELFPAY ==
--- NOTE | 2025-03-22 11:41 | HO.NEPHOV_ITS ---
Vital Signs 03/22/25 11:43 Height 4 ft 11 in Weight 152 lb 6 oz BMI 30.8 BP 130/80 Blood Pressure Location Lt brachial Position Sitting Pulse 87 Pulse Source Pulse Oximeter Pulse Oximetry (%) 98 Oxygen Delivery Method Room Air Intake Visit Reasons: 3 [id number] After School Driver Required: No Accompanied by: Mother Allergies shrimp Allergy (Intermediate, Verified 03/22/25 11:43) THROAT SWELLING HPI Comments Details: Kaylah was seen in follow-up of her proteinuria, hypertension and history of lupus nephritis. 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 She had low chronicity index but high activity index. Ever since she had 1 more child. She has stopped taking Plaquenil, losartan as well as mycophenolate for a long period of time. She has history of noncompliance. She denies any active joint swelling, joint pains, new skin rashes, pedal edema, visual disturbances, chest pain, shortness of breath, blood clots or spontaneous abortions. She has no history of antiphospholipid antibody. She is denying taking excessive nonsteroidal anti-inflammatories. She recently had pericarditis and was started on ASA and colchicine. [facility] Medical History Hypertension Proteinuria, unspecified SLE glomerulonephritis syndrome, WHO class II Surgical History H/O section Social History Alcohol intake: never Patient Tobacco Use Status: Never used Tobacco Review of Systems Const All systems reviewed & are unremarkable except as noted in HPI and below Physical Exam Vital Signs: Last Vital Signs Pulse 87 03/22/25 11:43 BP 130/80 03/22/25 11:43 Pulse Ox 98 03/22/25 11:43 Oxygen Delivery Method Room Air 03/22/25 11:43 BMI result Body Mass Index 30.8 Const General: comfortable and no acute distress Orientation/consciousness: patient oriented x3 HEENT Head: Yes normocephalic Mouth: Normal oral and palatal mucosa present Eyes EOM: EOMs intact bilaterally Neck Neck: Yes supple Resp Auscultation: clear to auscultation bilaterally Cardio Jugular venous distension: no JVD Rate: regular rate GI Palpation (GI): Soft to palpation Auscultation: normal bowel sounds General: Yes no CVA tenderness Back/Spine/Pelvis Back: no CVA tenderness Skin General skin exam: no rashes or lesions noted Neuro General: patient oriented x3 and moves all extremities Extrem General: Yes no pedal edema Results Reviewed Nephrology Results: Sodium, (135-145) 138 mmol/L 12/21/24 Potassium, (3.3-5.1) 3.8 mmol/L 12/21/24 Chloride, (96-108) 107 mmol/L 12/21/24 Carbon Dioxide, (22-29) 25 mmol/L 12/21/24 BUN, (9-16) 10 mg/dL 12/21/24 Creatinine, (0.5-1.4) 0.56 mg/dL 12/21/24 Urine Creatinine 91.66 mg/dL 12/21/24 Protein/Creatinin Ratio, (<0.2) 2.99 H 12/21/24 Assessment & Plan Assessment & Plan (1) Proteinuria, unspecified: Code(s): R80.9 - Proteinuria, unspecified Category: Medical Qualifiers: Proteinuria type: other Qualified Code(s): R80.8 - Other proteinuria (2) SLE glomerulonephritis syndrome, WHO class II: Code(s): M32.14 - Glomerular disease in systemic lupus erythematosus Category: Medical (3) Hypertension: Code(s): I10 - Essential (primary) hypertension Category: Medical Qualifiers: Hypertension 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 She had started and stopped immunosuppressions multiple times. She has history of receiving intravenous Cytoxan as well as pulse methylprednisone along with oral steroids. She claims to have been taking losartan 50 mg twice daily. She recently had pericarditis ( likely from lupus). I reinforced the fact that she needs to be compliant with medications. Her need for immunosuppression and other medications will be based on evolving data from the lab work . She does not need cellcept now. She may need Jardiance at next visit . Answered all her questions. Lab ordered . Follow-up appointment given. Orders: Orders Protein Creatinine Ratio, Ur 1 Month I15.1 - Hypertension secondary to other renal disorders, M32.14 - Glomerular disease in systemic lupus erythematosus, R80.8 - Other proteinuria Anti DNA DS Antibody 1 Month I15.1 - Hypertension secondary to other renal disorders, M32.14 - Glomerular disease in systemic lupus erythematosus, R80.8 - Other proteinuria Complement C3 1 Month I15.1 - Hypertension secondary to other renal disorders, M32.14 - Glomerular disease in systemic lupus erythematosus, R80.8 - Other proteinuria Complement C4 1 Month I15.1 - Hypertension secondary to other renal disorders, M32.14 - Glomerular disease in systemic lupus erythematosus, R80.8 - Other proteinuria Coding Level of Care Code Est Pt Level 4 (29143) Diagnoses Other proteinuria R80.8 Proteinuria type: other SLE glomerulonephritis syndrome, WHO class II M32.14 Hypertension secondary to other renal disorders I15.1 Hypertension type: secondary to other renal disorders
[2025-03-22 11:43] VITALS: BP 130/80; PULSE 87; O2SAT 98; BMI 30.8
== END 2025-03-22 12:09 | disposition home or self-care (01) ==
LOC: HO.HKAS 11:13
PROVIDERS: Visit Provider Internal Medicine Nephrology
DX: R80.8 Other proteinuria (principal); M32.14 Glomerular disease in systemic lupus erythematosus; I15.1 Hypertension secondary to other renal disorders
CPT/HCPCS: 99214

== ENCOUNTER → 2025-03-22 11:12 | Outpatient (BNVA) | payer OTHER, SELFPAY | PROVIDERS: Visit Provider Internal Medicine Nephrology | DX: I15.1 Hypertension secondary to other renal disorders (principal); M32.14 Glomerular disease in systemic lupus erythematosus; R80.8 Other proteinuria; Z79.899 Other long term (current) drug therapy | CPT/HCPCS: 99212 ==